=== PATIENT | male | born 1950 | race Caucasian/White ===

== ENCOUNTER 2017-08-18 06:12 | Day surgery (SDC) | payer MEDICARE, OTHER ==
--- NOTE | 2017-08-17 10:28 | SS ---
HISTORY OF PRESENT ILLNESS: This is a 66-year-old male who comes for colonoscopy for colon cancer sc ana rosa. The patient has no GI symptoms. He has a family history of colon cancer. ALLERGIES: SULFA. SOCIAL HISTORY: The patient does not smoke, but drinks alcohol socially. MEDICAL ILLNESSES: 1. Hypertension. 2. Diabetes mellitus. 3. Hyperlipidemia. 4. Obesity. PHYSICAL EXAMINATION: VITAL SIGNS: Pulse is 70, blood pressure 130/80. HEENT: Conjunctivae clear. CARDIOVASCULAR: First and second heart sounds normal. LUNGS: Clear to auscultation. ABDOMEN: Soft to palpate. No organomegaly. No tenderness. No masses. EXTREMITIES: Reveal no edema. ADMITTING DIAGNOSIS: A 66-year-old male who comes for colonoscopy for colon cancer hyacinth hernandez.
[2017-08-17 13:35] VITALS: BMI 36.8
--- NOTE | 2017-08-18 10:52 | OP ---
DATE OF SURGERY: 08/18/2017 OPERATIVE PROCEDURE: Colonoscopy with polypectomy and biopsy forceps. PREOPERATIVE DIAGNOSIS: A 66-year-old male undergoing colonoscopy for colon cancer screeni ng. POSTOPERATIVE DIAGNOSES: 1. Sessile ascending colon polyp. 2. Hemorrhoids. PROCEDURE IN DETAIL: The patient was placed on his left lateral position and was given sedation by A nesthesia Department. A rectal exam was done before the scope was advanced into the rectum. No lesi on felt on rectal exam. A Pentax video colonoscope was introduced into the rectum and advanced all t he way into the cecum. The prep was excellent. The mucosa appeared normal throughout the colon with normal vascular pattern. The appendiceal orifice, ileocecal valve and cecum, no pathology seen. A small ascending colon polyp removed with biopsy forceps. The hepatic flexure, transverse colon, sple romario flexure, descending colon, and sigmoid colon, no pathology. Rectum showed hemorrhoids. DISCHARGE PLANNING: This is a 66-year-old male who came for a colonoscopy for colon cancer screening. The colonoscopy showed sessile ascending colon polyp, hemorrhoids. DISCHARGE RECOMMENDATIONS: 1. The patient was advised to call me if he develops abdominal pain, hematochezia or fever. 2. In the absence of any of symptoms, come back to me in 2 weeks. 3. Repeat colonoscopy in 5 years.
[2017-08-18] MEDS ORDERED: PROPOFOL 200 MG/20 ML VIAL ONE (15:33)
== END 2017-08-18 08:54 | disposition home or self-care (01) ==
LOC: SDC 06:12
PROVIDERS: ATTEND Internal Medicine Gastroenterology
PROC: 0DBK8ZX Excision of Ascending Colon, Via Natural or Artificial Opening Endoscopic, Diagnostic (ICD-10-PCS; principal; 2017-08-18)
DX: Z12.11 Encounter for screening for malignant neoplasm of colon (principal); D12.2 Benign neoplasm of ascending colon; K64.9 Unspecified hemorrhoids; I10 Essential (primary) hypertension; E11.9 Type 2 diabetes mellitus without complications; E78.5 Hyperlipidemia, unspecified; E66.9 Obesity, unspecified; Z68.36 Body mass index [BMI] 36.0-36.9, adult; Z79.4 Long term (current) use of insulin; Z79.82 Long term (current) use of aspirin; Z79.899 Other long term (current) drug therapy; Z88.2 Allergy status to sulfonamides; Z98.890 Other specified postprocedural states
CPT/HCPCS: 88305; J2704

== ENCOUNTER → 2018-05-25 | Day surgery (SDC) | payer MEDICARE, OTHER ==
[2018-05-24 12:51] VITALS: BMI 33.7
[~2018-05-25] MED LIST: Fentanyl 100 MCG/2 ML VIAL ONE; Midazolam HCl 2 mg/2 ml Vial ONE; Sodium Bicarbonate 2.5 MEQ/5 ML VIAL ONE
[2018-05-25 08:59] LABS: INR-International Normal Ratio 1.1; PTT 29.5 SEC (22.9-36.1); Prothrombin Time 13.9 SEC (12.0-14.7)
--- NOTE | 2018-05-25 12:27 | CT ---
CT GUIDED LIVER MASS BIOPSY: HISTORY: Abdominal masses. Liver mass. CONSCIOUS SEDATION: At least 30 minutes were spent with the patient for conscious sedation. TECHNIQUE: After explaining the procedure and answering all questions, limited CT imaging of the upper abdomen w as performed. A lateral approach was planned. Sterile technique, buffered local anesthesia, conscio us sedation, CT guidance, and right upper quadrant lateral approach were used to carefully advance a 17 gauge trocar needle into a hypodense mass in the anterior segment, right liver lobe. Position was confirmed with CT imaging. A total of three 18 gauge core biopsy specimens were obtained and [facility]. Specimen adequacy was confirmed. The needle was removed. Post procedure imagi ng showed no evidence of complication. The patient tolerated the procedure well and was returned to the holding area in good condition for further monitoring. IMPRESSION: Technically successful CT guided liver mass biopsy. Pathology is pending. POS: JORGE
== END ==
LOC: CT 08:34
PROVIDERS: ATTEND Internal Medicine
PROC: 0FB13ZX Excision of Right Lobe Liver, Percutaneous Approach, Diagnostic (ICD-10-PCS; principal; 2018-05-25)
DX: C78.7 Secondary malignant neoplasm of liver and intrahepatic bile duct (principal); K86.89 Other specified diseases of pancreas; C80.1 Malignant (primary) neoplasm, unspecified; E11.9 Type 2 diabetes mellitus without complications; I10 Essential (primary) hypertension; M10.00 Idiopathic gout, unspecified site; E78.5 Hyperlipidemia, unspecified; Z79.4 Long term (current) use of insulin; Z79.82 Long term (current) use of aspirin; Z79.899 Other long term (current) drug therapy; Z88.2 Allergy status to sulfonamides
CPT/HCPCS: 36415; 47000; 77012; 85610; 85730; 88305; 88313; 88333; 88334; 88341; 88342; J2250; J3010

== ENCOUNTER 2018-06-07 14:05 | Outpatient (CLI) | payer MEDICARE, OTHER ==
--- NOTE | 2018-06-07 14:52 | RAD ---
CHEST 2 VIEWS: HISTORY: Malignant neoplasm overlying sits of pancreas. COMPARISON: Chest radiograph from 2012. FINDINGS: Heart size is mildly enlarged. Mild dilatation of the pulmonary arteries. No pneumothorax or effusi on. No suspicious mild pulmonary nodule is appreciated. IMPRESSION: Mild cardiomegaly. POS: TPC
== END 2018-06-07 14:06 | disposition home or self-care (01) ==
LOC: BICRAD 14:05
PROVIDERS: ATTEND Internal Medicine Medical Oncology
DX: C25.8 Malignant neoplasm of overlapping sites of pancreas (principal); I51.7 Cardiomegaly
CPT/HCPCS: 71046

== ENCOUNTER 2018-06-09 07:43 | Outpatient (CLI) | payer MEDICARE, OTHER ==
--- NOTE | 2018-06-09 14:51 | PET ---
PET WITH CT SKULL TO MID THIGH: CLINICAL HISTORY: Pancreatic cancer. RADIOPHARMACEUTICAL: 12 mCi F18-FDG IV interspersed with 10 mL 0.9% sodium chloride. There is appropriate biodistribution of radiotracer activity. No prior PET CT imaging available. FINDINGS: There is a focus of increased radiotracer activity localizing the left aspect of the lower cervical s pine with a maximum SUV of 2.7. There are hypermetabolic osseous lesions at each shoulder, with SUV m aximum up to 5.5 SUV localizing within the left humeral head. Within the left hilum, there is hyperme tabolic activity likely within a lymph node, with maximum SUV of approximately 4.7. There is a hyperm etabolic lesion involving left aspect of the upper thoracic spine, T3 level, with maximum SUV of 3.8. Numerous hypermetabolic lesions are seen throughout the liver, with involvement of both hepatic lobe s, with maximum SUV approximating 8, at the anterior segment right hepatic lobe. There is hypermetabo lic activity within the tail of the pancreas, with maximum SUV of 10. The adjacent hypertrophied left adrenal gland demonstrates increased metabolic activity as well, some of which is difficult to defin itively separate from the marked hypermetabolism of the adjacent pancreatic tail. At the lateral limb of the enlarged left adrenal gland, maximum SUV is approximately 4.6, There are numerous foci of inc reased metabolic activity of the kidneys bilaterally, some of which project at the parenchyma, althou gh could relate to misregistration. There is a focal mass-like prominence at the medial aspect of the right kidney with mild hypermetabolic activity, approximately 2.7. There are scattered foci of abnor mal increased metabolic activity throughout the thoracolumbar spine, and within the sacrum, with maxi mum SUV of approximately 6.3 at the L2 level. There are numerous hypermetabolic foci involving the bi lateral pelvic osseous structures, as well. There is mild nodularity at the pulmonary parenchyma bilaterally, too small for threshold of PET reso lution. There is linear, wedge-shaped density at the anterior left lung. IMPRESSION: Widespread metastatic disease involving the neck, chest, abdomen, and pelvis, as discussed above. POS: ZOE
== END 2018-06-09 07:44 | disposition home or self-care (01) ==
LOC: PET 07:43
PROVIDERS: ATTEND Internal Medicine Medical Oncology
DX: C25.9 Malignant neoplasm of pancreas, unspecified (principal); C78.7 Secondary malignant neoplasm of liver and intrahepatic bile duct; C79.00 Secondary malignant neoplasm of unspecified kidney and renal pelvis; C77.0 Secondary and unspecified malignant neoplasm of lymph nodes of head, face and neck
CPT/HCPCS: 78815; A9552

== ENCOUNTER 2018-06-15 11:07 | Day surgery (SDC) | payer MEDICARE, OTHER ==
[2018-06-14 13:23] VITALS: BMI 32.8
[2018-06-15 13:02] LABS: #Eosinphils 0.3 thou/uL (0.0-0.7); #Lymphocytes 1.1 thou/uL (1.20-3.40); #Monocytes 0.7 thou/uL (0.11-0.59); #Neutrophils 4.4 thou/uL (1.40-6.50); %Basophils 0.5 % (0.0-1.0); %Eosinophils 5.1 % (0.0-10.0); %Lymphocytes 16.8 % (21.0-51.0); %Monocytes 11.1 % (0.0-10.0); %Neutrophils 66.5 % (42.0-75.0); Mean Corpuscular HGB CONC 30.9 g/dL (32.0-36.0); Mean Corpuscular Hemoglobin 27.8 pg (27.0-31.0); Mean Corpuscular Volume 89.9 fL (78.0-98.0); Mean Platelet Volume 6.9 fL (7.4-10.4); Platelet Count 262 thou/uL (130-400); RBC Distribution Width 13.2 % (11.5-14.5); Red Blood Cell (RBC) Count 3.95 mill/uL (4.70-6.10); White Blood Cell (WBC) Count 6.6 thou/uL (4.8-10.8)
[2018-06-15] MEDS ORDERED: Bupivacaine/Epinephrine 0.25% 30 ML VIAL ONE (13:13)
[2018-06-15] MEDS ORDERED: Lidocaine 2% PF 5 ML VIAL ONE (13:13)
[2018-06-15] MEDS ORDERED: Midazolam HCl 2 mg/2 ml Vial ONE (13:21)
[2018-06-15] MEDS ORDERED: Propofol 500 MG/50 ML VIAL ONE (13:21)
[2018-06-15] MEDS ORDERED: Fentanyl 100 MCG/2 ML VIAL ONE (13:21)
[2018-06-15] MEDS ORDERED: Ketamine 50 MG/ML (10ML VIAL) ONE (13:23)
[2018-06-15] MEDS ORDERED: PROPOFOL 200 MG/20 ML VIAL ONE (13:38)
[2018-06-15] MEDS ORDERED: HYDROcodone/Acetaminophen 5/325 mg Tablet ONE (15:39)
--- NOTE | 2018-06-15 16:09 | RAD ---
CHEST ONE VIEW: 06/15/18 HISTORY: Postop Mediport placement. COMPARISON: Radiograph 03/03/08. FINDINGS: Placement of Mediport without pneumothorax. Heart size is enlarged. IMPRESSION: Uncomplicated placement of Mediport. POS: TPC
--- NOTE | 2018-06-15 21:33 | OP ---
DATE OF PROCEDURE: 06/15/2018 PREOPERATIVE DIAGNOSIS: Pancreatic cancer. POSTOPERATIVE DIAGNOSIS: Pancreatic cancer. PROCEDURE PERFORMED: Tunneled syndrome subcutaneous port (MediPort, right internal jugular vein, CT injectable low-profile). ANESTHESIA: General. ESTIMATED BLOOD LOSS: Minimal. COMPLICATIONS: None. SPECIMEN: None. FINDINGS: Tip of the catheter was at the atriocaval junction. TECHNIQUE: Th patient was taken to the operating room and laid supine on the operating room table. After sedation was obtained, bilateral neck and chest were shaved, prepped, and draped in a sterile fashion. Local anesthetic was infiltrated over the right internal jugular vein. Internal jugular vein cannulated using a 22-gauge finder needle, followed by a Seldinger. Wire was passed into the superior vena cava under fluoro guidance. Small madonna was made at the wire entrance site. A separate 3 cm incision was made in the right upper chest. Subcutaneous pocket was made below the lower incision. Tubing for MediPort tunneled from the inferior and superior incisions, and suture sheath was placed over the wire into superior vena cava under fluoro guidance. The dilator and wire were removed and end of the catheter was sewed into the sheath. The sheath was peeled away. The tip of the catheter was at the atriocaval junction. MediPort tubing cut to fit the MediPort with lower incision, connected to the MediPort, sewn to the chest wall in the subcutaneous pocket using Prolene. The MediPort flushes and draws blood without difficulty. It was flushed with heparin flush. The wound was irrigated and closed using 3-0 Vicryl, 4-0 Monocryl, and Dermabond. The patient was sent to Recovery in stable condition. All instrument counts, needle counts, and lap counts are correct. Job ID: [id number]
== END 2018-06-15 16:15 | disposition home or self-care (01) ==
LOC: SDC 11:07
PROVIDERS: ATTEND Surgery
PROC: 05HM33Z Insertion of Infusion Device into Right Internal Jugular Vein, Percutaneous Approach (ICD-10-PCS; principal; 2018-06-15)
DX: C25.9 Malignant neoplasm of pancreas, unspecified (principal); C78.7 Secondary malignant neoplasm of liver and intrahepatic bile duct; I10 Essential (primary) hypertension; E11.9 Type 2 diabetes mellitus without complications; E78.5 Hyperlipidemia, unspecified; Z88.2 Allergy status to sulfonamides
CPT/HCPCS: 36416; 71045; 85025; 93005; 93010; C1788; J1642; J2001; J2250; J2704; J3010

== ENCOUNTER → 2018-08-19 | Day surgery (SDC) | payer MEDICARE, OTHER ==
[~2018-08-19] MED LIST changes: +Acetaminophen 500 MG TAB PO SCH; -Fentanyl 100 MCG/2 ML VIAL ONE; -Midazolam HCl 2 mg/2 ml Vial ONE; -Sodium Bicarbonate 2.5 MEQ/5 ML VIAL ONE; +Sodium Chloride 0.9% 20 ML ONE; +diphenhydrAMINE 25 MG CAP PO SCH
[2018-08-19 19:20] VITALS: BP 180/84; TEMP 97.7
== END ==
LOC: ONC/OP 12:15
PROVIDERS: ATTEND Nurse Practitioner Acute Care
PROC: 30233N1 Transfusion of Nonautologous Red Blood Cells into Peripheral Vein, Percutaneous Approach (ICD-10-PCS; principal; 2018-08-19)
DX: D64.9 Anemia, unspecified (principal); D69.6 Thrombocytopenia, unspecified; Z88.2 Allergy status to sulfonamides
CPT/HCPCS: 36430; 86850; 86900; 86901; J1642; P9016; Q0163

== ENCOUNTER 2018-09-13 08:49 | Outpatient (CLI) | payer MEDICARE, OTHER ==
--- NOTE | 2018-09-13 12:46 | PET ---
PET CT: 09/13/18 HISTORY: 67-year-old male with pancreatic cancer. Exam requested for response evaluation. TECHNIQUE: PET scan with CT attenuation correction is performed from the base of the brain to the proximal thigh s following intravenous administration of 12.5 millicuries of 15-fluorodeoxyglucose in the right ante cubital fossa. COMPARISON: PET CT of 06/09/18. CORRELATION: CT abdomen and pelvis of 05/17/18. FINDINGS: There is continued hypermetabolic activity in the left hilum with an SUV Of 3 (previously 5). No jere l hypermetabolism is seen in the neck, mediastinum, right hilum, either axillae, abdomen or pelvis. The hypermetabolic pancreatic tail mass demonstrates a current SUV of 10 (previously 13). Multiple hypermetabolic liver lesions are again seen with a maximum SUV of 4.6 in the left lobe (prev iously 6.4), 6.8 in the medial aspect of the right lobe (previously 9.2) and 6 in the lateral aspect of the right lobe (previously 7.5). Numerous hypermetabolic osseous lesions are again noted. There are new osseous lesions in the L5 (SUV 5.6), T12 (SUV 3.7) and T9 (SUV 3.5) vertebrae. The previously noted territory service representative lesions of the m ain osseous metastatic foci demonstrate SUVs of 3 at L2 (previously 6.4), 3.9 at S1 (previously 4.7), 5.2 at S2 (previously 4), 3 at C4 (previously 4), 6.4 at right posterior acetabulum (previously 6.6) , right scapula 3.6 (previously 6.5), left humeral head 4.7 (previously 5.5) and right humeral head 7 (previously 5.6). No hypermetabolic pulmonary nodules or adrenal lesions are seen. There is physiologic activity in the and GI tracts. The CT scan used for attenuation correction demonstrates no evidence of pleural effusion or ascites. IMPRESSION: Mixed response to therapy since 06/09/18. POS: ZOE
== END 2018-09-13 08:50 | disposition home or self-care (01) ==
LOC: PET 08:49
PROVIDERS: ATTEND Internal Medicine Medical Oncology
DX: C25.9 Malignant neoplasm of pancreas, unspecified (principal)
CPT/HCPCS: 78815; A9552

== ENCOUNTER 2018-12-27 16:31 | Observation (INO) | payer MEDICARE, OTHER ==
[2018-12-27] MEDS ORDERED: Ondansetron PF 4 MG/2 ML Vial ONE (18:49)
[2018-12-27] MEDS ORDERED: Morphine 4 MG/ML VIAL ONE (18:49)
[2018-12-27 18:51] LABS: #Lymphocytes 0.5 thou/uL (1.20-3.40); #Monocytes 0.2 thou/uL (0.11-0.59); #Neutrophils 12.7 thou/uL (1.40-6.50); %Basophils 0.1 % (0.0-1.0); %Eosinophils 0.3 % (0.0-10.0); %Lymphocytes 3.6 % (21.0-51.0); %Monocytes 1.3 % (0.0-10.0); %Neutrophils 94.8 % (42.0-75.0); Hemoglobin 9.8 g/dL (14.0-18.0); Mean Corpuscular HGB CONC 31.9 g/dL (32.0-36.0); Mean Platelet Volume 6.8 fL (7.4-10.4); Platelet Count 256 thou/uL (130-400); RBC Distribution Width 17.3 % (11.5-14.5); Red Blood Cell (RBC) Count 3.07 mill/uL (4.70-6.10); White Blood Cell (WBC) Count 13.4 thou/uL (4.8-10.8)
[2018-12-27 19:01] LABS: INR-International Normal Ratio 1.1; PTT 34.9 SEC (22.9-36.1); Prothrombin Time 14.6 SEC (12.0-14.7)
[2018-12-27 19:16] LABS: ALT (SGPT) 10 U/L (8-55); AST (SGOT) 47 U/L (5-34); Albumin 2.8 g/dL (3.4-4.8); Alkaline Phosphatase 349 U/L (40-150); Anion Gap 17 mmol/L (10-20); BUN (Urea Nitrogen) 24 mg/dL (8.4-25.7); Bilirubin, Total 0.4 mg/dL (0.2-1.2); Calc. Creatinine Clearance 0 mL/min (70-130); Calcium 8.2 mg/dL (7.8-10.44); Carbon Dioxide 21 mmol/L (23-31); Chloride 102 mmol/L (98-107); Estimated GFR-MDRD Greater than 90; Globulin 3.2 g/dL (2.4-3.5); Glucose 199 mg/dL (80-115); Potassium 3.6 mmol/L (3.5-5.1); Sodium 136 mmol/L (136-145)
--- NOTE | 2018-12-27 23:08 | PDOC.FPRHP ---
- History of Present Illness Chief Complaint: pain History of Present Illness: 68 yo male with hx of metastatic pancreatic cancer presents for evaluation of abdominal pain and bloating. Patient reports increased and progressive bloating and pain over the past week along with increased bilateral LE edema. Received chemo earlier today. Sent over for CT scan to evaluate. Noted to have "a bunch of fluid." Patient reports since dx he has lost 70 lbs. Patient does endorse nausea but no vomiting. But has episodes of dry heaving. Has noticed increased mucus and postnasal drip. Recently evaluated by GI due to dysphasia to solids. No significant finding. Mild gastritis to be treated by H2 josh. Having intermittent diarrhea. Patient currently on Eitzen 10/325 mg with 2 tabs at a time BID that has been controlling pain but with recent changes over the past 2 days has not been controlling. Patient unsure of chemo regiment or cycle number (possibly #14). Recently received steroid dose. Patient was dx in April and started chemo in May. Fell last week but did not injury himself after tripping on rug at home. Last week noticed "fluid blisters" to toes. Patient describes belly bloating as an "intertube on my belly." Abdominal pain graded 5/10. ED Course: Patient was given morphine and zofran in the ED. - Allergies/Adverse Reactions Allergies Allergy/AdvReac Type Severity Reaction Status Date / Time Sulfa (Sulfonamide Allergy Unknown Verified 12/28/18 01:44 Antibiotics) - Home Medications Medication Instructions Recorded Confirmed Type Allopurinol [Zyloprim] 300 mg PO DAILY tablet 12/28/18 Rx Diphenoxylate HCl/Atropine 2 tab PO QID PRN 12/28/18 12/28/18 History [Lomotil] Dronabinol [Marinol] 5 mg PO BID-AC cap 12/28/18 Rx Insulin Detemir [Levemir Flextouch] 25 unit SQ DAILY 12/28/18 12/28/18 History Insulin Glargine [Lantus Vial] 25 units SC DAILY vial 12/28/18 Rx Lisinopril [Zestril] 10 mg PO DAILY tab 12/28/18 Rx Loperamide HCl/Simethicone 1 tablet PO ASDIR PRN 12/28/18 12/28/18 History [Imodium Multi-Symptom Relief Caplet] Potassium Chloride [K-Dur] 20 meq PO BID-WM tab 12/28/18 Rx - History PMHx: HTN, DM, HLD PSHx: Mediport placement 05/2018, liver bx 04/2018, back lesion removal under anesthesia FHx: Family history of heart disease. No cancer. Social: in June 2018. passed of breast cancer. 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 No alcohol, tobacco, drug use. - Review of Systems General: reports: weight/appetite/sleep changes (weight loss since CAncer dx). denies: fever/chills Eyes: denies: eye pain, vision changes ENT: denies: nasal congestion, rhinorrhea Respiratory: reports: cough. denies: shortness of breath Cardiovascular: reports: edema. denies: chest pain, palpitation, orthopnea Gastrointestinal: reports: nausea, abdominal pain. denies: diarrhea, constipation Genitourinary: denies: dysuria (difficulty urinating) Skin: denies: rashes, lesions, jaundice Neurological: denies: numbness, weakness Psychological: denies: anxiety, depression - Vital signs BP: 161/86 HR: 86 RR: 18 Pox: 98% on RA Wt: 81kg - Physical Exam Constitutional: NAD, awake, alert and oriented HEENT: normocephalic and atraumatic, EOMI, conjunctiva clear, no scleral icterus , MMM, oropharynx clear, other (somewhat hard of hearing) Neck: supple, trachea midline, no LAD, no thyromegaly Chest: no-tender to palpation (mediport in place over R chest) Heart: RRR, normal S1/S2, no murmurs/rubs/gallops -Heart: 3+ pitting edema in both lower extremities and over sacrum up to mid-back Lungs: CTAB, no respiratory distress -Lungs: mildly diminished over lower lung nunez but no rhonchi, crackles or rales. Abdomen: non-tender, bowel sounds present -Abdomen: markedly distended, tight abdomen, no fluid wave, no rigidity or guarding Musculoskeletal: normal structure, normal tone Neurological: no focal deficit Skin: no rash/lesions -Skin: multiple fluid-filled blisters over toes bilaterally Heme/Lymphatic: no petechia, no LAD Psychiatric: normal mood and affect, intact recent and remote memory FMR H&P: Results - Labs Result Diagrams: 12/28/18 04:16 12/28/18 04:16 Lab results: WBC 13.4 thou/uL (4.8-10.8) H 12/27/18 18:44 Hgb 9.8 g/dL (14.0-18.0) L 12/27/18 18:44 Hct 30.7 % (42.0-52.0) L 12/27/18 18:44 MCV 100.0 fL (78.0-98.0) H 12/27/18 18:44 Plt Count 256 thou/uL (130-400) 12/27/18 18:44 Neutrophils % 94.8 % (42.0-75.0) H 12/27/18 18:44 Sodium 136 mmol/L (136-145) 12/27/18 18:44 Potassium 3.6 mmol/L (3.5-5.1) 12/27/18 18:44 Chloride 102 mmol/L (98-107) 12/27/18 18:44 Carbon Dioxide 21 mmol/L (23-31) L 12/27/18 18:44 BUN 24 mg/dL (8.4-25.7) 12/27/18 18:44 Creatinine 0.79 mg/dL (0.7-1.3) 12/27/18 18:44 Glucose 199 mg/dL (80-115) H 12/27/18 18:44 Calcium 8.2 mg/dL (7.8-10.44) 12/27/18 18:44 Total Bilirubin 0.4 mg/dL (0.2-1.2) 12/27/18 18:44 AST 47 U/L (5-34) H 12/27/18 18:44 ALT 10 U/L (8-55) 12/27/18 18:44 Alkaline Phosphatase 349 U/L (40-150) H 12/27/18 18:44 Serum Total Protein 6.0 g/dL (5.8-8.1) 12/27/18 18:44 Albumin 2.8 g/dL (3.4-4.8) L 12/27/18 18:44 FMR H&P: A/P - Plan 68 male w/ metastatic pancreatic cancer: Ascites: - likely 2/2 to metastatic cancer - Therapeutic and/or diagnostic paracentesis in AM - Patient may have regular diet. - Procalcitonin pending Pain 2/2 metastatic pancreatic cancer and new-onset ascites: - Continue current home pain regimen of Eitzen - Fentanyl prn Dysphagia 2/2 to acid reflux: - May start PPI - PRN GI cocktail - Consult dietary for malnutrition and add Ensure Enlive for supplementation Metastatic Pancreatic Cancer: - Patient has chemo pump he will continue to use while here HTN HLD DM - Stable, chronic conditions - Continue home regimen of levemir, home BP meds - Insulin sliding scales, glucose checks ACHS Code status: FULL VTE PPx: therapeutic LVX Terrie Menendez MD PGY1 Disposition/LOS: Observation status on Oncology floor. FMR H&P: Upper Level - Pertinent history 68 yo gentleman with pancreatic metastatic disease on chemo presents with new onset ascites and abdominal pain. - Pertinent findings Vitals: BP:185/91 HR: 102 RR: 30 O2sat: 95%RA PE: NAD dry MM CTAB, decreased at the bases mild tachycardia, no m/r/g abdomen distended nontender to palpation, hypoactive bowel sounds 3+ pitting edema up to knees, 2+ pulses b/l lower extremities anasarca Labs: alk phosph 349 AST 49 Glucose 199 albumin 2.8 wbc 13.4 H/H: 9.8/30.7 [address]cv [address]% CT: metastatic dz to bone and liver pancreatic mass mass on right kidney ascites - Plan Date/Time: 12/27/18 3899 68 yo male with metastatic pancreatic cancer on chemo presents with new abdominal distention and pain, admitted for ascited and uncontrolled cancer related pain. #Ascites -2/2 malignancy -will admit to oncology and recommend theraputic paracentesis in the am #Uncontrolled pain -2/2 metastatic disease -restarted home regimen of 2 tabs 10/325mg norco q4-6 hrs prn pain, but addded fentanyl 50mcg IV q6h prn severe pain as the morphine per the pt didn't seem to help #Acid reflux with dysphagia for solids -seen by Antonio, s/p EGD -will start PPI -gi cocktail prn #Chemo related n/v -zofran, reglan, phenergan prn nausea -gi cocktail prn #pancreatic cancer with adia to liver and bone -chemo pump -control pain, see above -control nausea/vomiting, see above -Dr. Simmons consulted #leukocytosis -afebrile, no fever or source of infection -procal pending -will trend #macrocytic anemia -not in tranfusion range -will trend -restart home medications #Type 2 DM -sliding scale -home meds #HTN -prn hydralazine, labetalol -not currently on home meds #malnutrition -70 pound weight loss -ensure enlive bid - Code: Full DVT: lovenox Dispo: < 2 midnights Ramila Castañeda MD, PGY-3 Addendum - Attending - Attending Attestation Date/Time: 12/27/18 4980 I personally evaluated the patient and discussed the management with Dr. Menendez and Dr. Renteria I agree with the History, Examination, Assessment and Plan documented above with any addition or exceptions noted below. 68 yo male with metastatic pancreatic cancer sent over by oncologist for therapeutic tap Patient with progressive pain, nausea, dry heavying, severe bloating, and SOB due to progressive worsening of abdominal ascites. VS, labs, and imaging reviewed. Agree with PE as documented. Admit for obs. Adjust meds for pain control. GI in AM. Onc in AM. Monitor. Chet
[2018-12-27] MEDS ORDERED: Dextrose 5% in Water 1,000 ML IV PRN (23:55)
[2018-12-27] MEDS ORDERED: Metoclopramide HCl 10 MG TAB PO PRN (23:55)
[2018-12-27] MEDS ORDERED: Bisacodyl 10 MG SUPP PR PRN (23:55)
[2018-12-27] MEDS ORDERED: Guaifenesin DM 100-10/5 ML UDCUP PO PRN (23:55)
[2018-12-27] MEDS ORDERED: Ibuprofen 200 MG TAB PO PRN (23:55)
[2018-12-27] MEDS ORDERED: Bisacodyl 5 MG TAB PO PRN (23:55)
[2018-12-27] MEDS ORDERED: Fentanyl 100 MCG/2 ML VIAL SLOW IVP PRN (23:55)
[2018-12-27] MEDS ORDERED: Phenergan/Codeine 10-6.25mg/5ml UDCUP PO PRN (23:55)
[2018-12-27] MEDS ORDERED: Ondansetron ODT 4 MG TAB PO PRN (23:55)
[2018-12-27] MEDS ORDERED: HumaLOG 300 UNITS/3 ML VIAL SC PRN ×2 (23:55)
[2018-12-27] MEDS ORDERED: Cepastat Lozenges 1 LOZ PO PRN (23:55)
[2018-12-27] MEDS ORDERED: Ondansetron PF 4 MG/2 ML Vial IVP PRN (23:55)
[2018-12-27] MEDS ORDERED: Benzonatate 100 MG CAP PO PRN (23:55)
[2018-12-27] MEDS ORDERED: HYDROcodone/Acetaminophen 10/325 mg Tablet PO PRN ×2 (23:55)
[2018-12-27] MEDS ORDERED: Dextrose 50% Abboject 50 ML SYRINGE SLOW IVP PRN (23:55)
[2018-12-27] MEDS ORDERED: Loperamide HCl 2 MG CAP PO PRN ×2 (23:55)
[2018-12-27] MEDS ORDERED: Metoclopramide HCl 10 MG/2 ML VIAL IVP PRN (23:55)
[2018-12-27] MEDS ORDERED: Promethazine 25 MG TAB PO PRN (23:55)
[2018-12-27] MEDS ORDERED: Promethazine HCl 25 MG SUPP PR PRN (23:55)
[2018-12-27] MEDS ORDERED: Calcium Carbonate 500 MG ChewTAB PO PRN (23:55)
[2018-12-27] MEDS ORDERED: Senokot S 8.6-50 MG TAB PO PRN (23:55)
[2018-12-27] MEDS ORDERED: diphenhydrAMINE 25 MG CAP PO PRN (23:55)
[2018-12-28 00:25] VITALS: BMI 28.0
[2018-12-28] MEDS ORDERED: Lidocaine 2% Viscous Solution 20 ML, Aluminum & Magnesium Hydroxide 30 ML, Donnatal Eli... SSW PRN (03:45)
[2018-12-28 04:24] LABS: #Lymphocytes 0.3 thou/uL (1.20-3.40); #Monocytes 0.3 thou/uL (0.11-0.59); #Neutrophils 11.1 thou/uL (1.40-6.50); %Basophils 0.1 % (0.0-1.0); %Eosinophils 0.2 % (0.0-10.0); %Lymphocytes 2.9 % (21.0-51.0); %Monocytes 2.8 % (0.0-10.0); Hemoglobin 9.3 g/dL (14.0-18.0); Mean Corpuscular HGB CONC 32.2 g/dL (32.0-36.0); Mean Corpuscular Hemoglobin 32.3 pg (27.0-31.0); Mean Platelet Volume 6.8 fL (7.4-10.4); Platelet Count 223 thou/uL (130-400); RBC Distribution Width 17.1 % (11.5-14.5); Red Blood Cell (RBC) Count 2.87 mill/uL (4.70-6.10); White Blood Cell (WBC) Count 11.8 thou/uL (4.8-10.8)
[2018-12-28 04:48] LABS: Anion Gap 19 mmol/L (10-20); BUN (Urea Nitrogen) 28 mg/dL (8.4-25.7); Calc. Creatinine Clearance 95 mL/min (70-130); Calcium 7.9 mg/dL (7.8-10.44); Carbon Dioxide 16 mmol/L (23-31); Chloride 103 mmol/L (98-107); Estimated GFR-MDRD Greater than 90; Glucose 245 mg/dL (80-115); Potassium 4.2 mmol/L (3.5-5.1); Sodium 134 mmol/L (136-145)
--- NOTE | 2018-12-28 07:52 | PDOC.FM ---
- Subjective Subjective: Mr. Samaniego was sleeping during the time of the evaluation but was easily arousable and pleasant. His daughter was also present in the room and assisted with the HPI. The patient stated that he was feeling well despite not sleeping well throughout the night. He stated that his pain was adequately controlled, ranking it at approximately 5/10. He also stated that although he was nauseous, this was near to his baseline following his extensive chemotherapy regimen. He denied any fevers, chills, night sweats, headaches, chest pain, shortness of breath or difficulty with voiding. - Objective MAR Reviewed: Yes Vital Signs & Weight: Vital Signs (12 hours) Temp Pulse Resp BP Pulse Ox 12/28/18 03:55 97.8 F 87 16 160/82 H 95 Weight Weight 81.221 kg I&O: 12/27/18 12/28/18 12/29/18 06:59 06:59 06:59 Intake Total 100 Balance 100 Result Diagrams: 12/28/18 04:16 12/28/18 04:16 Radiology Reviewed by me: Yes (ABD CT: Ascites w/ diffuse metastases) Phys Exam - Physical Examination Constitutional: NAD HEENT: PERRLA, moist MMs, sclera anicteric, oral pharynx no lesions Neck: no nodes, supple, full ROM Respiratory: no wheezing, no rales, no rhonchi, clear to auscultation bilateral Cardiovascular: RRR, no significant murmur, no rub Gastrointestinal: positive bowel sounds Protuberant abdomen w/o TTP, guarding or rigidity Musculoskeletal: edema present Neurological: non-focal, moves all 4 limbs Lymphatic: no nodes Psychiatric: normal affect Deviation from normal: Chronic venous stasis changes in LEs Dx/Plan (1) Abdominal pain Code(s): R10.9 - UNSPECIFIED ABDOMINAL PAIN Status: Acute (2) Ascites Code(s): R18.8 - OTHER ASCITES Status: Acute (3) Metastasis from pancreatic cancer Code(s): C79.9 - SECONDARY MALIGNANT NEOPLASM OF UNSPECIFIED SITE; C25.9 - MALIGNANT NEOPLASM OF PANCREAS, UNSPECIFIED Status: Acute - Plan Plan: 1. ABD Pain, 2/2 to Ascites -Likely 2/2 to diffusely metastatic Pancreatic Cancer -CT ABD: Extensive ascites and metastases w/o additional pathologies identifies -WBC: 11.8 -ProCal: 0.2 -Infectious etiologies for pain unlikely -Patient states that he is able to void and pass stool without difficulty -Will likely require therapeutic/diagnostic paracentesis 2. Pain 2/2 Metastatic Pancreatic Cancer/New-Onset Ascites -Continue home pain regimen of 2 [place] 10/325 Q4H -Fentanyl 50 mcg Q6H PRN 3. Metastatic Pancreatic Cancer -Patient has chemo pump - will continue current medication regimen established with Oncology 4. HTN -BP was 160/82 on 12/28/18 -Restart home medication regimen -BP will likely autoregulate following therapeutic/diagnostic paracentesis 5. HLD -Restart home medication regimen 6. DM -Continue home medication regimen -Moderate Insulin Sliding Scales -Glucose checks ACHS Code Status: FULL VTE PPx: Therapeutic LVX Diet: CC Activity: Ad kendra Dispo: Patient appears to have pain and nausea adequately controlled. Will schedule theurapeutic/diagnostic paracentesis later this AM with possible DC later this PM.
[2018-12-28] MEDS: Potassium Chloride 20 MEQ TAB PO SCH ×3 (08:45→17:34)
[2018-12-28] MEDS: Dronabinol 2.5 MG CAP PO SCH ×2 (08:45→16:45)
[2018-12-28] MEDS ORDERED: Lisinopril 10 MG TAB PO SCH (09:00)
[2018-12-28] MEDS ORDERED: INSULIN DETEMIR 25 UNIT SQ SCH (09:00)
[2018-12-28] MEDS ORDERED: Enoxaparin Sodium 40 MG/0.4 ML SYRINGE SC SCH (09:00)
[2018-12-28] MEDS ORDERED: Famotidine 20 MG TAB PO SCH (09:00)
[2018-12-28] MEDS ORDERED: Allopurinol 300 MG TAB PO SCH (09:00)
[2018-12-28] MEDS ORDERED: Insulin Glargine 25 UNITS in Pre-Filled Syringe 1 EACH SC SCH (09:00)
--- NOTE | 2018-12-28 10:32 | PRG ---
DATE OF SERVICE: 12/28/2018 Mr. Samaniego is a very pleasant 68-year-old man, who unfortunately with metastatic pancreatic cancer. He presented to our ER with some abdominal pain and nausea and was noted to have rather massive ascites. He has been admitted for observation and paracentesis. This morning, he is awake and alert, in no acute distress. He does have abdominal distention secondary to massive ascites. We will proceed with a paracentesis later today to relieve his symptomatology. We have notified Oncology. Job ID: [id number]
[2018-12-28] MEDS ORDERED: Lidocaine 1% w/Epinephrine 1:100K 20 ML VIAL IJ SCH (11:30)
[2018-12-28 12:27] VITALS: TEMP 97.5
--- NOTE | 2018-12-28 14:07 | PDOC.OP ---
Operative Note - Operative Note Operative Note: ABDOMINAL PARACENTESIS INDICATION: Abdominal Pain / Distention PROCEDURE RAILROAD REPAIRER: Dr. Jose De Jesus Grier ATTENDING PHYSICIAN: Dr. Krishna Phan In Attendance: Y Ultrasound used to krishna location: Y CONSENT: Consent was obtained from the patient prior to the procedure. Indications, risks , and benefits were explained at length. PROCEDURE SUMMARY: A time-out was performed. My hands were sterilized prior to the procedure. I wore a mask with sterile gloves throughout the procedure. The RLQ of the abdomen was cleansed and draped in usual sterile fashion using chlorhexidine scrub. 1% lidocaine with epinephrine was used to numb the skin, soft tissue and peritoneum. The paracentesis catheter was inserted and advanced with negative pressure until straw colored fluid was aspirated. The catheter was then connected to the vaccutainer and 4.5 liters of additional ascitic fluid was drained. The catheter was removed and minimal leaking was noted. A bandaid was placed over the puncture wound. The patient tolerated the procedure well without any immediate complications. Estimated blood loss was 10 mL. The patient 's BP was monitored after each liter of ascitic fluid was drained and are listed in order below. 1L: 148/70 2L: 159/73 3L: 154/74 4L: 152/72 4.5L: 137/67 Addendum - Attending - Attending Attestation Date/Time: 12/28/18 1420 I personally evaluated the patient and discussed the management with Dr. Grier and was present for the entire procedure with the following changes noted below. Dr. Carl Barry was also present for the procedure. Patient admitted for symptomatic ascities due to metastatic pancreatic cancer. Paracentesis performed for symptomatic treatment. Procedure performed without complication with 4.5L of ascitic fluid removed. Minimal leakage noted from the incision. Further management per primary team.
[2018-12-28 17:07] VITALS: BP 161/70
--- NOTE | 2018-12-29 10:30 | DIS ---
DATE OF ADMISSION: 12/27/2018 DATE OF DISCHARGE: 12/28/2018 RESIDENT: Jose De Jesus Grier MD ADMITTING ATTENDING: Dr. Tanna Vann. DISCHARGE ATTENDING: Dr. Carlos Polo. CONSULTS: None. PROCEDURES: Paracentesis. PRIMARY DIAGNOSIS: Abdominal pain secondary to ascites secondary to metastatic pancreatic cancer. SECONDARY DIAGNOSES: Hypertension, diabetes, hyperlipidemia, gout, extreme weight loss. DISCHARGE MEDICATIONS: None. DISCONTINUED MEDICATIONS: 1. Rodney 10/325. 2. Allopurinol 300 mg. 3. Lovenox 40 mg. 4. Famotidine 20 mg. 5. Fentanyl 50 mcg. 6. Insulin glargine 25 units. 7. Lisinopril 10 mg. HISTORY OF PRESENT ILLNESS/HOSPITAL COURSE: Mr. Samaniego is an unfortunate gentleman who presents to the emergency department after consulting with his oncologist due to increasing abdominal pain. Mr. Samaniego has had a diagnosis of metastatic pancreatic cancer since May 2018 and has been receiving multiple rounds of chemotherapy treatment. Over the past several months, he has had increasing abdominal girth, thought to be secondary to ascites as well as increasing abdominal pain, nausea, and shortness of breath. On admission, the patient received a CT scan that demonstrated gross ascites within the abdominal cavity. No signs of additional pathology other than the metastatic pancreatic cancer previously noted. During his stay, a paracentesis was performed by Dr. Jose De Jesus Grier with [facility] and approximately 4.5 L of straw-colored ascitic fluid was removed. The patient admitted to have greatly increased sense of relief and a lessening of his abdominal pain, shortness of breath, and nausea. The patient was able to maintain p.o. intake and use the bathroom for stooling and voiding prior to discharge. LABORATORY DATA: Upon discharge, WBC count of 11.8, RBC 2.9, hemoglobin of 9.3, hematocrit 28.8, platelet count 223. Coagulation panel revealed a PT of 14.6, APTT of 34.9, and an INR of 1.1. Chem panel demonstrated sodium of 134, potassium 4.2, chloride 103, carbon dioxide 16, BUN 28, creatinine 0.83, glucose 245, but registered as 215 via POC glucose prior to discharge. AST 47, ALT 10, alk phos 349. Serum total protein 6, albumin 2.8, procalcitonin 0.22. The likelihood of an infectious cause to the patient's increasing abdominal girth and pain appeared unlike both on admission and at discharge. DISPOSITION: Stable, although prognosis is relatively poor given the patient's advanced metastatic pancreatic cancer. DISCHARGE INSTRUCTIONS: 1. Location: Home. 2. Diet: Renal diet. 3. Activity: No restrictions. 4. Followup: Dr. Jordan Falk (PCP) Job ID: [id number] MTDD
== END 2018-12-28 17:51 | disposition home or self-care (01) ==
LOC: ERS 16:31 → ONC 23:32
PROVIDERS: ADMIT Student in an Organized Health Care Education/Training Program; ATTEND Student in an Organized Health Care Education/Training Program
PROC: 0W9G3ZZ Drainage of Peritoneal Cavity, Percutaneous Approach (ICD-10-PCS; principal; 2018-12-27)
PROC: BW40ZZZ Ultrasonography of Abdomen (ICD-10-PCS; 2018-12-27)
DX: C25.9 Malignant neoplasm of pancreas, unspecified (principal); C78.7 Secondary malignant neoplasm of liver and intrahepatic bile duct; C79.51 Secondary malignant neoplasm of bone; R18.8 Other ascites; I10 Essential (primary) hypertension; E11.9 Type 2 diabetes mellitus without complications; E78.5 Hyperlipidemia, unspecified; K21.9 Gastro-esophageal reflux disease without esophagitis; D64.9 Anemia, unspecified; E46 Unspecified protein-calorie malnutrition; Z68.28 Body mass index [BMI] 28.0-28.9, adult; M10.9 Gout, unspecified; Z79.4 Long term (current) use of insulin; Z79.899 Other long term (current) drug therapy; Z88.2 Allergy status to sulfonamides
CPT/HCPCS: 32554; 36415; 36416; 74176; 80048; 80053; 82248; 82378; 83615; 84100; 84145; 84550; 85025; 85610; 85730; 86301; 96372; 96374; 96375; G0378; J1650; J1815; J2001; J2270; J2405; J3010; Q0167

== ENCOUNTER 2018-12-31 18:46 | Inpatient (IN) | payer MEDICARE, OTHER ==
[~2018-12-31 18:46] MED LIST changes: -Acetaminophen 500 MG TAB PO SCH; +ISOVUE-370 76%-LOCM 1 ML ONE; -Sodium Chloride 0.9% 20 ML ONE; -diphenhydrAMINE 25 MG CAP PO SCH
[2018-12-31] MEDS ORDERED: Diltiazem HCl 125 MG, Admixture Fee 1 EACH in Sodium Chloride 0.9% 100 ML IVPB SCH (19:30)
[2018-12-31] MEDS ORDERED: Magnesium 2 GM/50 ML BAG (IN WATER) ONE ×2 (19:30→23:26)
[2018-12-31] MEDS ORDERED: Diltiazem 125 MG/25 ML ONE (19:35)
[2018-12-31] MEDS ORDERED: Morphine 4 MG/ML VIAL ONE (19:59)
[2018-12-31 20:05] LABS: Hemoglobin 10.7 g/dL (14.0-18.0); Mean Corpuscular HGB CONC 31.4 g/dL (32.0-36.0); Mean Corpuscular Hemoglobin 31.6 pg (27.0-31.0); Mean Platelet Volume 7.1 fL (7.4-10.4); Platelet Count 180 thou/uL (130-400); Red Blood Cell (RBC) Count 3.37 mill/uL (4.70-6.10); White Blood Cell (WBC) Count 61.2 thou/uL (4.8-10.8)
[2018-12-31 20:11] LABS: INR-International Normal Ratio 1.1; Prothrombin Time 14.2 SEC (12.0-14.7)
[2018-12-31 20:15] LABS: Band 4 % (5-11); MDiff Complete? YES; Neutrophil 96 % (42-75)
--- NOTE | 2018-12-31 20:16 | RAD ---
SUPINE PORTABLE CHEST: 12/31/18 INDICATIONS: Shortness of breath. COMPARISON: 06/15/18. No confluent infiltrate or consolidation. I cannot exclude some hazy alveolar infiltrate in the right lung base, some of which may represent atelectasis. Left lung is clear. Mediport catheter overlies t he SVC. IMPRESSION: Question infiltrate or atelectasis in the right lung base. Follow-up recommended. POS: AGW
[2018-12-31 20:17] LABS: Bilirubin, Total 0.4 mg/dL (0.2-1.2); Calcium 7.5 mg/dL (7.8-10.44); Chloride 104 mmol/L (98-107); Potassium 4.4 mmol/L (3.5-5.1); Sodium 139 mmol/L (136-145)
--- NOTE | 2018-12-31 20:19 | RAD ---
AP PELVIS: 12/31/18 HISTORY: Fall. Residual contrast from a previous CT is seen within the colon. The pelvic ring is intact without evid ence of fracture. Osseous metastatic disease is again demonstrated. IMPRESSION: No evidence of fracture. POS: ZOE
[2018-12-31 20:25] LABS: Albumin 2.9 g/dL (3.4-4.8)
[2018-12-31 20:27] LABS: Globulin 2.3 g/dL (2.4-3.5); Glucose 101 mg/dL (80-115); Protein, Total 5.2 g/dL (5.8-8.1)
[2018-12-31 20:29] LABS: Anion Gap 23 mmol/L (10-20); Carbon Dioxide 18 mmol/L (23-31)
[2018-12-31 20:30] LABS: Alkaline Phosphatase 342 U/L (40-150); D-Dimer Test 6.62 *mcg/mL (0.27-0.43)
[2018-12-31 20:31] LABS: BUN (Urea Nitrogen) 18 mg/dL (8.4-25.7); Calc. Creatinine Clearance 0 mL/min (70-130); Estimated GFR-MDRD Greater than 90
[2018-12-31 20:32] LABS: AST (SGOT) 56 U/L (5-34)
[2018-12-31 20:33] LABS: ALT (SGPT) 12 U/L (8-55); Magnesium 1.4 mg/dL (1.6-2.6)
[2018-12-31 20:39] LABS: CKMB 5.1 ng/mL (0-6.6)
[2018-12-31 20:47] LABS: Bilirubin Negative (Negative); Blood, Urine Negative (Negative); Clarity Clear (Clear); Glucose, Urine (Dipstick) Normal (Negative); Leukocyte Negative Leu/uL (Negative); Nitrite Negative (Negative); Protein, Urine (Dipstick) 30 mg/dL (Neg-Trace); RBC/HPF 0-3 HPF (0-3); Squamous Epithelial None Seen HPF (0-3); Urobilinogen Normal mg/dL (Less than 2)
[2018-12-31 21:02] LABS: Bacteria/HPF 1+ HPF (None Seen)
[2018-12-31] MEDS ORDERED: Piperacillin/Tazobactam 3.375 GM VIAL ONE (21:15)
--- NOTE | 2018-12-31 21:44 | CT ---
CT angiogram of chest performed with intravenous contrast enhancement with 3-D reconstructions: HISTORY: History of pancreatic cancer and chemotherapy. Cough. COMPARISON: None. FINDINGS: There are moderate bilateral pleural effusions right larger than left with bibasilar atelec tasis. There is a 7 mm pleural-based nodule seen along the undersurface of the right minor fissure. Small mediastinal and hilar lymph nodes are noted. The thoracic aorta is normal in caliber. There is good pulmonary artery opacification and no CT evidence for pulmonary embolus. Abdominal findings will be described in the subsequent report. IMPRESSION: 1. No CT evidence of pulmonary embolus. 2. Bilateral pleural effusions right larger than left with bibasilar atelectasis. 3. Osseous metastatic disease.
--- NOTE | 2018-12-31 21:51 | CT ---
CT Abdomen Pelvis W Con HISTORY: Pancreatic cancer. Patient had chemotherapy Wednesday. Abdominal pain. COMPARISON: 12/27/2018 and 05/17/2018 CT examinations. FINDINGS: There are moderate bilateral pleural effusions right larger than left with bibasilar atelec tasis. The liver is small and shows numerous metastatic lesions, this is been noted on the previous exam. Th e spleen shows no focal abnormalities. The gallbladder is mildly distended. The pancreatic tail mass is unchanged. Right and left adrenal glands are normal in appearance. A solid mass measuring 3.7 cm is seen within the right kidney very suspicious for renal cell neoplasm. Hypodensity seen in both kidneys are most likely cysts. There is no significant periaortic or mesenteric adenopathy. Marked ascites is again de monstrated, the degree of ascites is reduced as compared to the most recent prior study. Diffuse osseous metastatic disease is again demonstrated. IMPRESSION: 1. Bilateral pleural effusions with bibasilar atelectasis. 2. Diffuse liver metastatic disease. 3. Pancreatic tail mass. 4. Right renal mass. 5. Moderate ascites somewhat reduced as compared to the prior exam. 6. Diffuse osseous metastatic disease.
[2018-12-31] MEDS ORDERED: Norepinephrine 8 MG in Dextrose 5% in Water 242 ML IVPB PRN (22:09)
[2018-12-31] MEDS ORDERED: Digoxin 0.5 MG/2 ML AMP ONE (22:59)
[2018-12-31 23:49] LABS: RBC Count-Automated (BF) 5192 /cumm; WBC/Nucleated-Auto (BF) 496 uL
[2018-12-31] MEDS ORDERED: Ondansetron PF 4 MG/2 ML Vial ONE (23:52)
[2018-12-31 23:58] LABS: BF Color Yellow; Body Fluid Source Peritoneal Fluid; Clarity Hazy (Clear); Tube # EDTA
[2019-01-01] MEDS ORDERED: Ondansetron ODT 4 MG TAB SL PRN (00:13)
[2019-01-01] MEDS ORDERED: Ondansetron PF 4 MG/2 ML Vial IVP PRN ×2 (00:13→00:38)
[2019-01-01] MEDS ORDERED: Sodium Chloride 77 MEQ in Dextrose 10% in Water 1,000 ML IV SCH (00:15)
[2019-01-01 00:19] LABS: BF Segmented Neutrophils 33 %; Cell Count Non Hematic 60 %; Lymphocytes 7 %
[2019-01-01] MEDS ORDERED: CCU Electrolyte Replacement 1 EACH IVPB ONE (00:38)
[2019-01-01] MEDS ORDERED: Dextrose 5% in Water 1,000 ML IV PRN (00:38)
[2019-01-01] MEDS ORDERED: Dextrose 50% Abboject 50 ML SYRINGE SLOW IVP PRN (00:38)
[2019-01-01] MEDS ORDERED: Senokot S 8.6-50 MG TAB PO PRN (00:38)
[2019-01-01] MEDS ORDERED: Norepinephrine 8 MG/0.9% NS 250 ML IVPB PRN (00:38)
--- NOTE | 2019-01-01 00:49 | PDOC.EVN ---
Addendum - Attending - Attending Attestation Date/Time: 01/01/19 0031 I personally evaluated the patient and discussed the management with Dr. Emerson and Maki See the History, Examination, Assessment and Plan documented in separate note . 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 Patient with recent new onset ascites had paracentesis performed last week. Patient with hypogylcemia today unresponsive to IV dextrose by EMS at his home patient brought to ER with new onset atrial fibrillation with RVR , paracentesis done ER with cloudy fluid for culture otherwise lab notable for WBCs 66,000. daughter states was given neulasta yesterday. Patient bolused with diltiazem and IV drip started as well as IV digoxin, may need BB if heart rate remains refractory plan echocardiogram in AM. Consider SBP Sepsis work up and empirical Antibiotic coverage started in ER with vancomycin and zosyn. Patient desire to be full code at this time. 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
[2019-01-01] MEDS ORDERED: Metoprolol Tartrate 5 MG/5 ML VIAL IVP PRN (00:51)
[2019-01-01] MEDS ORDERED: PHOS-NAK 1 PKT PACK PO PRN ×2 (00:57)
[2019-01-01] MEDS ORDERED: Potassium Phosphate 15 MMOL in Sodium Chloride 0.9% 250 ML 250 ML IV PRN (00:57)
[2019-01-01] MEDS ORDERED: Potassium Phosphate 9 MMOL in Sodium Chloride 0.9% 100 ML IVPB PRN (00:57)
[2019-01-01] MEDS ORDERED: CCU ELECTROLYTE REPLACEMENT PROTOCOL FS PRN (00:57)
[2019-01-01] MEDS ORDERED: Potassium Chloride 40 MEQ in Premix Bag 1 BAG IVPB PRN (00:57)
[2019-01-01] MEDS ORDERED: Potassium Chloride 20 MEQ TAB PO PRN (00:57)
[2019-01-01] MEDS ORDERED: Magnesium Oxide 400 MG TAB PO PRN ×2 (00:57)
[2019-01-01] MEDS ORDERED: Magnesium 2 GM/50 ML 2 GM in Premix Bag 1 BAG IVPB PRN (00:57)
[2019-01-01] MEDS ORDERED: Potassium Phosphate 12 MMOL in Sodium Chloride 0.9% 250 ML 250 ML IV PRN (00:57)
[2019-01-01] MEDS ORDERED: Potassium Chloride 40 MEQ in Sodium Chloride 0.9% 250 ML 250 ML IVPB PRN (00:57)
[2019-01-01] MEDS ORDERED: Enoxaparin Sodium 80 MG/0.8 ML SYRINGE SC SCH (01:00)
[2019-01-01 01:28] LABS: Phosphorus 3.5 mg/dL (2.3-4.7)
--- NOTE | 2019-01-01 01:31 | PDOC.FPRHP ---
- History of Present Illness Chief Complaint: septic shock History of Present Illness: 68yo CM with h/o metastatic pancreatic cancer presents via EMS for AMS 2/2 hypoglycemia. Pt states he was sitting at home and began to experience generalized weakness. He states he slid off the bed onto the floor, no fall, and adult son who lives at home could not hep him up. EMS was called, pt initially hypoglycemia, BG <30, responded to a couple amps of glucose. Pt did not want to be transported to the hospital per report, but eventually agreed. Pt in ED currently denies any CP, dyspnea, fever/chills, lightheadedness, dizziness, n/v, or palpitations. Endorses chronic diarrhea. No known sick contacts. ED Course: In the ED, pt hypoglycemia and AMS were resolved, however pt was found to be in afib with RVR with rates to 180. Initial bolus of dilt, and started on dilt gtt to 15, given 0.5mg dig, and 4g Mag. Pt was still in afib with rate in the 130s upon transfer to the floor. Pt had initial Bcx and Ucx taken, started on vanc and zosyn, and a diagnostic paracentesis was obtained per to transfer to the floor. - Allergies/Adverse Reactions Allergies Allergy/AdvReac Type Severity Reaction Status Date / Time Sulfa (Sulfonamide Allergy Unknown Verified 12/28/18 01:44 Antibiotics) - Home Medications Medication Instructions Recorded Confirmed Type Allopurinol [Zyloprim] 300 mg PO DAILY tablet 12/28/18 01/01/19 Rx Diphenoxylate HCl/Atropine 2 tab PO QID PRN 12/28/18 01/01/19 History [Lomotil] Dronabinol [Marinol] 5 mg PO BID-AC cap 12/28/18 01/01/19 Rx Insulin Detemir [Levemir Flextouch] 25 unit SQ DAILY 12/28/18 01/01/19 History Lisinopril [Zestril] 10 mg PO DAILY tab 12/28/18 01/01/19 Rx Loperamide HCl/Simethicone 1 tablet PO ASDIR PRN 12/28/18 01/01/19 History [Imodium Multi-Symptom Relief Caplet] Potassium Chloride [K-Dur] 20 meq PO BID-WM tab 12/28/18 01/01/19 Rx - History PMHx: Metastatic pancreatic cancer, HTN, DMII, HLD PSHx: right port-a-cath placement FHx: noncontributory Social: Lives with adult son. Denies any tob or illicits. Social drinker. - Review of Systems General: reports: fatigue, other (generalized weakness). denies: fever/chills, night sweats ENT: denies: nasal congestion, rhinorrhea Respiratory: denies: cough, congestion, shortness of breath Cardiovascular: reports: edema. denies: chest pain, palpitation Gastrointestinal: reports: diarrhea (chronic). denies: nausea, vomiting, constipation Genitourinary: denies: incontinence, dysuria Skin: denies: rashes Musculoskeletal: reports: pain (lower abdominal pressure associated with cancer) Neurological: reports: weakness. denies: numbness, syncope - Vital signs BP: 141/82 HR: 153 RR: 20 Tmax: 98.0 Pox: 98% on RA Wt: 78kg - Physical Exam Constitutional: NAD, awake, alert and oriented HEENT: normocephalic and atraumatic, PERRLA, EOMI, conjunctiva clear, MMM Neck: supple, trachea midline Heart: no murmurs/rubs/gallops, other (tachycardia with an irregurally irregular rythm. 1+ pitting edema to mid-buenrostro bilaterally) Lungs: CTAB, no respiratory distress, good air movement, no rales/rhonchi, no wheezing Abdomen: soft, bowel sounds present, other (mildly TTP along lower abdomen, no rebound or guarding. Mildly distended but improved per patient after paracentesis this last Wednesday.) Neurological: no focal deficit Skin: no rash/lesions Heme/Lymphatic: other (port in place on right upper chest) FMR H&P: Results - Labs Result Diagrams: 01/01/19 03:44 01/01/19 03:44 Lab results: WBC 61.2 thou/uL (4.8-10.8) H* 12/31/18 19:48 Hgb 10.7 g/dL (14.0-18.0) L 12/31/18 19:48 Hct 33.9 % (42.0-52.0) L 12/31/18 19:48 MCV 101.0 fL (78.0-98.0) H 12/31/18 19:48 Plt Count 180 thou/uL (130-400) 12/31/18 19:48 Band Neuts % (Manual) 4 % (5-11) L 12/31/18 19:48 Sodium 139 mmol/L (136-145) 12/31/18 19:48 Potassium 4.4 mmol/L (3.5-5.1) 12/31/18 19:48 Chloride 104 mmol/L (98-107) 12/31/18 19:48 Carbon Dioxide 18 mmol/L (23-31) L 12/31/18 19:48 BUN 18 mg/dL (8.4-25.7) 12/31/18 19:48 Creatinine 0.66 mg/dL (0.7-1.3) L 12/31/18 19:48 Glucose 101 mg/dL (80-115) 12/31/18 19:48 Calcium 7.5 mg/dL (7.8-10.44) L 12/31/18 19:48 Total Bilirubin 0.4 mg/dL (0.2-1.2) 12/31/18 19:48 AST 56 U/L (5-34) H 12/31/18 19:48 ALT 12 U/L (8-55) 12/31/18 19:48 Alkaline Phosphatase 342 U/L (40-150) H 12/31/18 19:48 CK-MB (CK-2) 5.1 ng/mL (0-6.6) 12/31/18 19:48 Serum Total Protein 5.2 g/dL (5.8-8.1) L 12/31/18 19:48 Albumin 2.9 g/dL (3.4-4.8) L 12/31/18 19:48 Urine Ketones Negative mg/dL (Negative) 12/31/18 20:30 Urine Blood Negative (Negative) 12/31/18 20:30 Urine Nitrite Negative (Negative) 12/31/18 20:30 Ur Leukocyte Esterase Negative Lilia/uL (Negative) 12/31/18 20:30 Urine RBC 0-3 HPF (0-3) 12/31/18 20:30 Urine WBC 4-6 HPF (0-3) A 12/31/18 20:30 Ur Squamous Epith Cells None Seen HPF (0-3) 12/31/18 20:30 Urine Bacteria 1+ HPF (None Seen) 12/31/18 20:30 - Radiology Interpretation CT scan - abdomen Status: report reviewed by me (BL pleural effusions, diffuse liver mets, panceatic tail mass, Right renal mass, moderate ascities, diffuse osseuous disease) CT scan - chest Status: report reviewed by me (negative for PE. osseous mets.) FMR H&P: A/P - Problem List (1) Septic shock Current Visit: Yes Status: Acute Code(s): A41.9 - SEPSIS, UNSPECIFIED ORGANISM; R65.21 - SEVERE SEPSIS WITH SEPTIC SHOCK (2) Atrial fibrillation with RVR Current Visit: Yes Status: Acute Code(s): I48.91 - UNSPECIFIED ATRIAL FIBRILLATION (3) Elevated troponin Current Visit: Yes Status: Acute Code(s): R74.8 - ABNORMAL LEVELS OF OTHER SERUM ENZYMES (4) Metastasis from pancreatic cancer Current Visit: Yes Status: Chronic Code(s): C79.9 - SECONDARY MALIGNANT NEOPLASM OF UNSPECIFIED SITE; C25.9 - MALIGNANT NEOPLASM OF PANCREAS, UNSPECIFIED (5) Diabetes Current Visit: Yes Status: Acute Code(s): E11.9 - TYPE 2 DIABETES MELLITUS WITHOUT COMPLICATIONS - Plan 68yo CM with h/o metastatic pancreatic cancer presents via EMS for AMS 2/2 hypoglycemia found to be in afib with RVR and septic shock. #Septic shock from unknown source - WBC 61.2, ROS negative, CTA Chest and Abd/Pelvis CT no signs of infection, UA clean. Consider SBP. - Started on vanc an zosyn, will cont - Procal ordered - Responded to 2L NS bolus in ED< BP 110s/70s and stable at this time, will monitor and consider adding pressors if needed - BCx and UCx pending - diagnostic paracentesis performed in ED, awaiting studies and Cx #Afib with RVR - Initial HR to 160s, given dilt bolus and started on dilt gtt to 15, 0.5mg digoxin, and 4g Mag given in ED -Will give lopressor push if still elevated - Asx and BP stable at 110s/70s, will monitor closely - Dr. Coleman, Cards, consulted - recommended CCM, no amio at this time, will reeval pt in AM, apprec recs - On Therapeutic lovenox - ECHO in AM # Elevated Troponin, likely demand ischemia 2/2 Afib with RVR - EKG afib with RVR, trop initially elevated, asx, will trend trops - On therapeutic lovenox for afib with RVR, cont to monitor #Elevated D-dimer - initially elevated, CTA chest r/o PE # Metastatic Pancreatic Cancer - Known to Dr. Simmons, will make aware pt is admitted in AM - Palliative care consulted for assistance with goals of care and advanced directives, apprec recs #IDDMII - Initially hypoglycemic on presentation, resolved in ED -Is on 25u Levemir at home. Will hold at this time. Will reeval sugars in AM and adjust dosing as needed. - Will begin q2h accuchecks with diabetic hyperglycemic protocol and mild SS insulin - monitor and adjust as needed # HTN - home home lisinopril at this time VTE: Therapeutic lovenox Diet: NPO Code: Full - discussed at length with pt and daughter and son at bedside, wishes to be full code but not "kept alive as a vegetable," recommended relaying these wishes to family and having wishes in writing, consulted Palliative care to help with discussion Disposition/LOS: Admit to CCU for afib with RVR, septic shock 2/2 unknown source, monitor closely pending workup and management. Anticipate hospitalization 3-5 days. FMR H&P: Upper Level - Pertinent history I was present with the academic intern during the HPI. I scribed the above HPI while obtained. It should be noted patient was a poor historian. - Pertinent findings Pt resting in bed. Appears somewhat tired. Pt abdomen distended. NTTP. Cardio: Irregularly irregular, tachy Resp: CTA-B, no wheezes or crackles. - Plan Date/Time: 01/01/19 0124 IAllan, PGY-3, have evaluated this patient and agree with findings/ plan as outlined by academic intern resident. Pertinent changes/additions are listed here. I made changes to above plan. Pt has septic shock 2/2 unknown source. U/A neg, CTA and CXR show no acute path. On broad spectrum abx Vanc and zosyn. Awaiting Paracentesis cx and studies. ECHO ordered due to A.fib w/ rvr and r/o source infection. Pt maxed out on diltiazem. ER doc spoke with Dr. Ibrahim, Recommends Lopressor push if HR still elevated. Pt denies chest pain. Follow cards recs. Pt has extensive metastic pancreatic cancer. Consult heme/onc in AM. Pt recieved chemo drug yesterday which can elevate WBC. Yet WBC is severly elevated at 61. Reviewed all pt records and highest recorded WBC was 18 in the last few months. Likely underlying infection. Addendum - Attending - Attending Attestation Date/Time: 01/01/19 0750 I personally evaluated the patient and discussed the management with Dr. Emerson and Maki I agree with the History, Examination, Assessment and Plan documented above with any addition or exceptions noted below. Heart rate still poorly controlled despite diltiazem and digoxin will add BB per Cardiology rec as needed patient BP stable. Marked leucocytosis consider infectious verse Ca related etiology will continue empirical antibiotic AM Oncology Consultation.
[2019-01-01 01:38] LABS: Troponin I 0.392 ng/mL (< 0.028)
[2019-01-01] MEDS: Vancomycin HCl 1 GM in Premix Bag 1 BAG IVPB SCH ×2 (01:49→15:04)
[2019-01-01] MEDS: Piperacillin/Tazobactam 3.375 GM in Sodium Chloride 0.9% 100 ML IVPB SCH ×4 (03:27→20:16)
[2019-01-01 03:59] LABS: Hemoglobin 8.4 g/dL (14.0-18.0); Platelet Count 134 thou/uL (130-400)
[2019-01-01] MEDS: HumaLOG 300 UNITS/3 ML VIAL SC PRN (03:59)
[2019-01-01 04:05] LABS: Hemoglobin 8.4 g/dL (14.0-18.0); Mean Corpuscular HGB CONC 30.6 g/dL (32.0-36.0); Mean Corpuscular Hemoglobin 30.7 pg (27.0-31.0); Mean Platelet Volume 7.3 fL (7.4-10.4); Platelet Count 135 thou/uL (130-400); RBC Distribution Width 16.7 % (11.5-14.5); Red Blood Cell (RBC) Count 2.72 mill/uL (4.70-6.10); White Blood Cell (WBC) Count 54.4 thou/uL (4.8-10.8)
[2019-01-01] MEDS ORDERED: Morphine 4 MG/ML VIAL SLOW IVP PRN (04:20)
[2019-01-01 04:22] LABS: ALT (SGPT) 8 U/L (8-55); AST (SGOT) 39 U/L (5-34); Albumin 2.4 g/dL (3.4-4.8); Alkaline Phosphatase 286 U/L (40-150); Anion Gap 14 mmol/L (10-20); BUN (Urea Nitrogen) 14 mg/dL (8.4-25.7); Bilirubin, Total 0.4 mg/dL (0.2-1.2); Calc. Creatinine Clearance 109 mL/min (70-130); Calcium 7.3 mg/dL (7.8-10.44); Carbon Dioxide 23 mmol/L (23-31); Chloride 102 mmol/L (98-107); Estimated GFR-MDRD Greater than 90; Globulin 2.3 g/dL (2.4-3.5); Glucose 221 mg/dL (80-115); Potassium 3.9 mmol/L (3.5-5.1); Protein, Total 4.7 g/dL (5.8-8.1); Sodium 135 mmol/L (136-145)
[2019-01-01 05:11] LABS: Anisocytosis SLIGHT = 6-15 cells (100X) (0-5/hpf); Band 5 % (5-11); Lymphocytes 2 % (21-51); MDiff Complete? YES; Neutrophil 93 % (42-75); Platelet Morphology Comment Appears Adequate
[2019-01-01] MEDS: Diltiazem HCl 125 MG, Admixture Fee 1 EACH in Sodium Chloride 0.9% 100 ML IVPB SCH ×2 (06:04→15:03)
[2019-01-01] MEDS: Allopurinol 300 MG TAB PO SCH (08:14)
[2019-01-01] MEDS: Famotidine/PF 20 mg/2ml Vial SLOW IVP SCH ×2 (08:17→20:16)
[2019-01-01] MEDS ORDERED: Vancomycin HCl 1 GM in Premix Bag 1 BAG IVPB SCH (10:00)
--- NOTE | 2019-01-01 12:37 | CON ---
DATE OF CONSULTATION: REASON FOR CONSULTATION: Atrial fibrillation. PRIMARY DIGITAL CONTROLS TECHNICAL OFFICER: None. HISTORY OF PRESENT ILLNESS: Mr. Samaniego is an unfortunate 68-year-old gentleman, who recently was diagnosed with metastatic pancreatic cancer. He recently presented to the hospital with weakness, fatigue, and tachycardia. His heart rate was in the 140s to 150s. He was given IV Cardizem in addition to digoxin for better rate control with little improvement. His white blood cell count was also markedly elevated in the 50,000 range. He has had fevers and chills present. He also was found to be markedly hypoglycemic with difficulty on maintaining a blood sugar greater than 30. PAST MEDICAL HISTORY: As above including hypertension, diabetes mellitus, hyperlipidemia, Port-A-Cath placement. SOCIAL HISTORY: No current tobacco or alcohol use. HOME MEDICATIONS: Include, 1. Allopurinol. 2. Lomotil. 3. Marinol. 4. Levemir. 5. Zestril. 6. K-Dur. 7. Loperamide. REVIEW OF SYSTEMS: Ten-point review of systems is reviewed as above, otherwise negative. PHYSICAL EXAMINATION: GENERAL: Patient is a pleasant male, who is in no acute distress. The patient appears their stated age. He does appear pale and weak. VITAL SIGNS: Blood pressure 106/75, pulse 134, respiratory rate 20. NEUROLOGIC: The patient is alert and oriented x3 with no focal neurologic deficits. HEENT: Sclerae without icterus. Mouth has moist mucous membranes with normal pallor. NECK: No JVD. Carotid upstroke brisk. No bruits bilaterally. LUNGS: Clear to auscultation with unlabored respirations. BACK: No scoliosis or kyphosis. CARDIAC: Irregularly irregular rate and rhythm with normal S1 and S2. No S3 or S4 noted. No significant rubs, murmurs, thrills, or gallops noted throughout the precordium. PMI is not displaced. There is no parasternal heave. ABDOMEN: Soft, nontender, nondistended. No peritoneal signs present. No hepatosplenomegaly. No abnormal striae. EXTREMITIES: 2+ femoral and 2+ dorsalis pedis pulses. No cyanosis, clubbing, or edema. SKIN: No gross abnormalities. PERTINENT LABORATORY DATA: White blood cell count 61,000, hemoglobin 8.4, platelet count 135. IMPRESSION: 1. Atrial fibrillation with rapid ventricular response. 2. Metastatic pancreatic cancer. 3. Ascites. RECOMMENDATIONS: We will continue IV Cardizem. We will supplement with p.o. Cardizem in hopes that his rate decreases. Can also consider beta-josh therapy. If rate continues to be elevated, would consider esmolol. This maybe in a direct response to his underlying condition, which may include sepsis and pancreatic cancer. His echo did show suggestion of normal LVEF with no pericardial effusion. There was ascites fluid noted around the liver. Based on the above, prognosis appears guarded. Job ID: [id number]
[2019-01-01] MEDS: Enoxaparin Sodium 80 MG/0.8 ML SYRINGE SC SCH (12:41)
[2019-01-01] MEDS ORDERED: Magnesium 2 GM/50 ML 2 GM in Premix Bag 1 BAG IVPB SCH (14:45)
[2019-01-01] MEDS ORDERED: Potassium Chloride 20 MEQ in Premix Bag 1 BAG IVPB SCH (15:00)
--- NOTE | 2019-01-01 16:41 | CON ---
DATE OF CONSULTATION: 01/01/2019 SERVICE: Pulmonary Medicine. REASON FOR CONSULTATION: ICU patient. HISTORY OF PRESENT ILLNESS: The patient is a 68-year-old white male with past medical history significant for diabetes mellitus. He actually takes insulin at home. Because of pancreatic cancer, which is quite advanced, the patient has a poor appetite. He only eats sporadically. As such, he took his insulin, but unfortunately, would not able to eat anything. He had a syncopal event. After his sugars were replaced, he woke up and was discovered to be in atrial fibrillation with RVR. He was brought to the emergency department. He currently feels that he is back to his usual state of health. Prior to this event, nothing was out of the ordinary for him. He denies any current fevers or chills. He does have nausea almost continuously, but has not been vomiting. He is passing gas and having normal bowel movements for him. PAST MEDICAL HISTORY: 1. Pancreatic cancer, advanced. 2. Type-2 diabetes mellitus. 3. Hypertension. 4. Dyslipidemia. PAST SURGICAL HISTORY: Port catheter placement. FAMILY HISTORY: Noncontributory. SOCIAL HISTORY: He lives with his son. He does not currently use any alcohol, tobacco, or illicit drugs. He has no exposure to chemicals, dust, asbestos, or tuberculosis. ALLERGIES: SULFA. MEDICATIONS: List of inpatient medications was reviewed. No specific updates were made. REVIEW OF SYSTEMS: General; head, ears, eyes, nose, and throat; cardiovascular; respiratory; GI; ; musculoskeletal; neurologic; and skin is negative except as mentioned in the HPI. PHYSICAL EXAMINATION: VITAL SIGNS: Afebrile. Pulse 137, blood pressure 113/71, respirations 20, saturation 96%, currently on 2 L nasal cannula. GENERAL: The patient is awake and alert, in no apparent distress. LUNGS: Decent air entry. Dependent crackles are noted. HEART: Tachycardic. Irregular. ABDOMEN: Soft, nontender, and nondistended. Bowel sounds are positive. MUSCULOSKELETAL: No cyanosis or clubbing. There is no pitting. NEUROLOGIC: Grossly nonfocal. LABORATORY DATA: WBC 54.4, hemoglobin 8.4 and stable, platelets 135,000. INR 1.1. Basic metabolic profile is essentially unremarkable. Glucose ranges from 170 to 221, though it was 30 on presentation. Magnesium 1.1, alkaline phosphatase 286. AST and ALT are nearly within the normal limits. Urinalysis is unremarkable. Paracentesis fluid was not consistent with infected space. IMAGING DATA: 1. Echocardiogram demonstrates 50% to 55% ejection fraction. Mild valvular abnormalities are present. No significant diastology is noted. 2. CT of the abdomen and pelvis demonstrates bilateral pleural effusions. Diffuse liver metastatic disease. Pancreatic tail mass. Right renal mass. Moderate ascites. Diffuse osseous metastatic disease. 3. CTA of the chest demonstrates no evidence of PE. There are some bilateral pleural effusions, that are present. Osseous metastatic disease is present throughout. ASSESSMENT: 1. Syncope. 2. Hypoglycemia. 3. Atrial fibrillation with rapid ventricular response. 4. Pancreatic cancer, widely metastatic. 5. Pleural effusions. 6. Leukemoid reaction, suspected. 7. Severe protein-calorie malnutrition. DISCUSSION AND PLAN: I doubt that this patient has an infectious syndrome. My suspicion is that he has developed a leukemoid reaction associated with the severe stress that the hypoglycemia put on his body. Furthermore, he has an anemia. It seems to be slightly worse than his baseline. As such, it would be reasonable type and cross with tomorrow morning's laboratories. Pulmonary/Critical Care will follow very closely for the time being. Once his heart rate is under slightly better control, he will be stable for transition out of the ICU. 70 minutes have been devoted to this patient in various activities. I personally reviewed all imaging studies and laboratory data noted within this document. For fifty percent of this time, I was interacting with the patient at the bedside or coordinating care with the care team. For the remainder of the time I was immediately available to the patient in the hospital unit. Job ID: [id number] [facility]
[2019-01-01] MEDS: Metoprolol Tartrate 25 MG TAB PO SCH (20:16)
[2019-01-02] MEDS: Enoxaparin Sodium 80 MG/0.8 ML SYRINGE SC SCH ×4 (00:13→23:59)
[2019-01-02] MEDS: Vancomycin HCl 1 GM in Premix Bag 1 BAG IVPB SCH (02:07)
[2019-01-02] MEDS: Piperacillin/Tazobactam 3.375 GM in Sodium Chloride 0.9% 100 ML IVPB SCH ×4 (03:51→21:27)
[2019-01-02] MEDS: HumaLOG 300 UNITS/3 ML VIAL SC PRN ×2 (04:48→23:55)
[2019-01-02 05:23] LABS: ALT (SGPT) 10 U/L (8-55); AST (SGOT) 26 U/L (5-34); Albumin 2.2 g/dL (3.4-4.8); Alkaline Phosphatase 259 U/L (40-150); Anion Gap 14 mmol/L (10-20); BUN (Urea Nitrogen) 13 mg/dL (8.4-25.7); Bilirubin, Total 0.5 mg/dL (0.2-1.2); Calc. Creatinine Clearance 112 mL/min (70-130); Calcium 7.2 mg/dL (7.8-10.44); Carbon Dioxide 21 mmol/L (23-31); Chloride 104 mmol/L (98-107); Estimated GFR-MDRD Greater than 90; Globulin 2.3 g/dL (2.4-3.5); Glucose 164 mg/dL (80-115); Protein, Total 4.5 g/dL (5.8-8.1); Sodium 135 mmol/L (136-145)
[2019-01-02 05:32] LABS: Anisocytosis SLIGHT = 6-15 cells (100X) (0-5/hpf); Band 7 % (5-11); Elliptocytes SLIGHT = 2-5 cells (100X) (0-1/hpf); Hemoglobin 7.9 g/dL (14.0-18.0); MDiff Complete? YES; Mean Corpuscular HGB CONC 31.8 g/dL (32.0-36.0); Mean Corpuscular Hemoglobin 32.2 pg (27.0-31.0); Mean Platelet Volume 8.5 fL (7.4-10.4); Neutrophil 93 % (42-75); Platelet Count 78 thou/uL (130-400); Platelet Morphology Comment Appears Decreased; RBC Distribution Width 16.5 % (11.5-14.5); Red Blood Cell (RBC) Count 2.45 mill/uL (4.70-6.10); White Blood Cell (WBC) Count 33.1 thou/uL (4.8-10.8)
[2019-01-02] MEDS: Diltiazem HCl 125 MG, Admixture Fee 1 EACH in Sodium Chloride 0.9% 100 ML IVPB SCH ×2 (06:14→16:35)
--- NOTE | 2019-01-02 06:51 | PDOC.FM ---
- Subjective Subjective: NAEO. Brendan wekaness, heart palpitations. Reports improved abd pain. no fever, chills. - Objective Vital Signs & Weight: Vital Signs (12 hours) Temp Pulse Ox 01/02/19 04:00 98.0 F 01/02/19 00:00 98.0 F 01/01/19 20:00 98.4 F 94 L Weight Weight 74.9 kg Most Recent Monitor Data Heart Rate from ECG 106 NIBP 88/62 NIBP BP-Mean 70 Respiration from ECG 23 SpO2 98 I&O: 12/31/18 01/01/19 01/02/19 06:59 06:59 06:59 Intake Total 718 1221 Output Total 785 1100 Balance -67 121 Result Diagrams: 01/02/19 04:46 01/02/19 04:46 Phys Exam - Physical Examination cachectic HEENT: PERRLA, moist MMs Respiratory: no wheezing, clear to auscultation bilateral Cardiovascular: no significant murmur, irregular Gastrointestinal: soft, non-tender, positive bowel sounds fluid wave 1+ edema in lower legs Neurological: non-focal, moves all 4 limbs Psychiatric: normal affect, A&O x 3 Dx/Plan (1) Ascites Code(s): R18.8 - OTHER ASCITES Status: Acute (2) Metastasis from pancreatic cancer Code(s): C79.9 - SECONDARY MALIGNANT NEOPLASM OF UNSPECIFIED SITE; C25.9 - MALIGNANT NEOPLASM OF PANCREAS, UNSPECIFIED Status: Chronic (3) Septic shock Code(s): A41.9 - SEPSIS, UNSPECIFIED ORGANISM; R65.21 - SEVERE SEPSIS WITH SEPTIC SHOCK Status: Acute (4) Atrial fibrillation with RVR Code(s): I48.91 - UNSPECIFIED ATRIAL FIBRILLATION Status: Acute (5) Elevated troponin Code(s): R74.8 - ABNORMAL LEVELS OF OTHER SERUM ENZYMES Status: Acute (6) Diabetes Code(s): E11.9 - TYPE 2 DIABETES MELLITUS WITHOUT COMPLICATIONS Status: Acute - Plan Plan: 68yo CM with h/o metastatic pancreatic cancer presents via EMS for AMS 2/2 hypoglycemia found to be in afib with RVR and septic shock. #Septic shock from unknown source - WBC downtrending to 33, afebrile, bcx NGTD, will finalize this evening. - ascitic fluid studies not consistent with infection at this time -picture more consistent with leukemoid reaction from hypoglycemia -continue empiric abx pending finalized blood cultures then can likely d/c #Afib with RVR -BPs low normal 80-100/60s, on dilt @ 15, po metoprolol BID, titrate dilt to maintain MAP >65 - ECHO pending - lovenox, ASA -Dr. Coleman on board, recs appreciated #Hypoglycemia -likely from taking insulin in light of poor appetite -will certified personal finance counselor on when to take insulin or not -drop home insulin requirement to 10units glargine while here in hospital #Hypoclyemia in IDDMII - POC 142-170, no further hypoglycemic episodes - downtitrated daily insulin to 10 glargine (home 25 units) -discussed imporatnce of eating with insulin administration # Elevated Troponin, likely demand ischemia 2/2 Afib with RVR - EKG afib with RVR, trop initially elevated, asx, will trend trops - On therapeutic lovenox for afib with RVR, cont to monitor #Elevated D-dimer - initially elevated, CTA chest r/o PE # Metastatic Pancreatic Cancer - Dr. Morales consulted - Palliative care consulted for assistance with goals of care and advanced directives, apprec recs # HTN - home home lisinopril at this time VTE: Therapeutic lovenox Diet: NPO, will start diet today Code: Full - discussed at length with pt and daughter and son at bedside, wishes to be full code but not "kept alive as a vegetable," recommended relaying these wishes to family and having wishes in writing, consulted Palliative care to help with discussion will discuss with Dr. Flores Addendum - Attending - Attending Attestation Date/Time: 01/02/192048 I personally evaluated the patient and discussed the management with Dr. Noguera at 0940 I agree with the History, Examination, Assessment and Plan documented above with any addition or exceptions noted below. Metastatic pancreatic cancer afib with RVR thrombocytopenia Anemia Patient on therapeutic lovenox but with will discuss with cardiology as now with thrombocytopenia. On max dose IV cardizem but rate still not controlled. Began discussion with patient about ongoing goals of care. Palliative care and oncology consulted for assistance.
[2019-01-02] MEDS ORDERED: Dronabinol 2.5 MG CAP PO ONE (07:44)
[2019-01-02] MEDS: Metoprolol Tartrate 25 MG TAB PO SCH ×2 (08:41→21:26)
[2019-01-02] MEDS: Famotidine/PF 20 mg/2ml Vial SLOW IVP SCH ×2 (08:41→21:26)
[2019-01-02] MEDS: Allopurinol 300 MG TAB PO SCH (08:42)
[2019-01-02] MEDS ORDERED: Sodium Chloride 0.9% 500 ML IV SCH (09:30)
[2019-01-02] MEDS: Insulin Glargine 10 UNITS in Pre-Filled Syringe 1 EACH SC SCH (10:45)
[2019-01-02] MEDS ORDERED: Dexamethasone 4 mg/ml Vial SLOW IVP SCH (11:00)
--- NOTE | 2019-01-02 12:06 | PRG ---
DATE OF SERVICE: 01/02/2019 SERVICE: Pulmonary Medicine INTERVAL HISTORY: The patient has constant complaints of discomfort. He does not like to be rotated to the right or to the left because of his bone pain. He denies any current fevers, chills, nausea, or vomiting. There are no significant overnight events. Otherwise, his white blood cell count has improved significantly. He does not have any complaints of difficulty with breathing. PHYSICAL EXAMINATION: VITAL SIGNS: Afebrile, pulse 110, blood pressure 106/75, respirations 25, and saturation 98%, currently on room air. GENERAL: The patient is awake and alert. He is in moderate distress secondary to multiple pains. HEENT: Normocephalic and atraumatic. Sclerae are white. Conjunctivae are pink. Oral mucosa is moist without lesions. There is significant temporal wasting present. LUNGS: Decent air entry. Rhonchi are present but clear with cough. No prolonged expiratory phase. HEART: Normal rate, regular. ABDOMEN: Soft, nontender, and nondistended. Bowel sounds are positive. MUSCULOSKELETAL: No cyanosis or clubbing. No pitting in the bilateral lower extremities. NEUROLOGIC: Grossly nonfocal. LABORATORY DATA: WBC is settling down to 33.1, hemoglobin 7.9 and gently downtrending, platelets 78,000. Basic metabolic profile is essentially unremarkable. Calcium 7.2. Liver function studies are otherwise unremarkable. Alkaline phosphatase is elevated, associated with likely liver and/or bone lesions. Urinalysis is negative. All culture results are negative to date. IMAGING: Echocardiogram shows normal ejection fraction with mild valvular abnormalities. ASSESSMENT: 1. Syncope. 2. Hypoglycemia, resolved. 3. Atrial fibrillation with RVR, currently under better rate control. 4. Pancreatic cancer, widely metastatic. 5. Pleural effusion. 6. Leukemoid reaction, suspected. 7. Severe protein-calorie malnutrition. 8. Chronic pain. DISCUSSION AND PLAN: The patient is on frequent narcotic medications. I will introduce a small dose of steroids to see whether or not this helps with his bone discomfort. He has developed a new thrombocytopenia. We can consider holding anticoagulation at this time. I do not see any source of blood loss, however. Assuming his hemoglobins remain stable, he would be stable for transition out of the ICU to the telemetry unit. He remains a full code, but Palliative Services are discussing this further with him. Ultimately, I do not believe the patient is a good candidate in his current state for ongoing chemotherapy. That is for Oncology, however, to decide with the patient. If he ends up intubated, he will be unlikely to make a meaningful recovery. Job ID: [id number]
--- NOTE | 2019-01-02 14:14 | PDOC.CPN ---
- Subjective Date: 01/02/19 Time: 14:23 Interval history: Pt in better spirits today. Not eating or taking PO Taking meds though HR remains elevated - Objective Allergies/Adverse Reactions: Allergies Allergy/AdvReac Type Severity Reaction Status Date / Time Sulfa (Sulfonamide Allergy Unknown Verified 12/28/18 01:44 Antibiotics) Visit Medications: Current Medications Allopurinol (Zyloprim) 300 mg PO DAILY [facility] Last Admin: 01/02/19 08:42 Dose: 300 mg Dexamethasone (Decadron) 4 mg SLOW IVP DAILY [facility] Dextrose/Water (Dextrose 50%) 25 gm SLOW IVP PRN PRN PRN Reason: Hypoglycemia Diltiazem HCl (Cardizem) 30 mg PO Q6H [facility] Last Admin: 01/02/19 11:17 Dose: 30 mg Dronabinol (Marinol) 2.5 mg PO BID-AC [facility] Enoxaparin Sodium (Lovenox) 80 mg SC 1200,2359 [facility] Last Admin: 01/02/19 11:17 Dose: 80 mg Famotidine (Pepcid) 20 mg SLOW IVP Q12HR [facility] Last Admin: 01/02/19 08:41 Dose: 20 mg Glucagon (Glucagon) 1 mg IM PRN PRN PRN Reason: Hypoglycemia Norepinephrine Bitartrate 8 mg (/ Dextrose/Water) 250 mls @ 0 mls/hr IVPB INF PRN; Protocol PRN Reason: TO MAINTAIN MAP > 65 Diltiazem HCl 125 mg/Miscellaneous Medication 1 each/ Sodium Chloride 125 mls @ 5 mls/hr IVPB INF [facility]; Protocol Last Admin: 01/02/19 06:14 Dose: 125 mls Dextrose/Water (D5w) 1,000 mls @ 0 mls/hr IV .Q0M PRN PRN Reason: Hypoglycemia Norepinephrine Bitartrate (Levophed) 250 mls @ 0 mls/hr IVPB PRN PRN; Protocol PRN Reason: To maintain MAP > 65 Piperacillin Sod/Tazobactam (Sod 3.375 gm/ Sodium Chloride) 100 mls @ 200 mls/ hr IVPB 0300,0900,1500,2100 [facility] Last Admin: 01/02/19 08:41 Dose: 100 mls Potassium Chloride 40 meq/ (Sodium Chloride) 270 mls @ 135 mls/hr IVPB ASDIR PRN PRN Reason: FOR SERUM K+ 2.5 - 3.5 Potassium Chloride 40 meq/ (Device) 100 mls @ 50 mls/hr IVPB ASDIR PRN PRN Reason: FOR SERUM K+ 2.5 - 3.5 Magnesium Sulfate 1 gm/ Sodium (Chloride) 102 mls @ 102 mls/hr IV PRN PRN PRN Reason: MAG LEVEL 1.4 - 2.0 Magnesium Sulfate 2 gm/ Device 50 mls @ 50 mls/hr IVPB ASDIR PRN PRN Reason: MAGNESIUM < 1.4 Potassium Phosphate 9 mmol/ (Sodium Chloride) 103 mls @ 25.75 mls/hr IVPB ASDIR PRN PRN Reason: Phosphate 1.0-1.8 Potassium Phosphate 12 mmol/ (Sodium Chloride) 254 mls @ 63.5 mls/hr IV ASDIR PRN PRN Reason: Serum phosphate 0.5-0.9 Potassium Phosphate 15 mmol/ (Sodium Chloride) 255 mls @ 63.75 mls/hr IV ASDIR PRN PRN Reason: Serum Phos < 0.5 Insulin Glargine 10 units/ (Miscellaneous Medication) 0.1 mls @ 0 mls/[facility] [place] [facility] Last Admin: 01/02/19 10:45 Dose: Not Given Vancomycin HCl 1.25 gm/ Sodium (Chloride) 250 mls @ 166.667 mls/hr IVPB 0200, 1400 [facility] Insulin Human Lispro (Humalog) 0 units SC .MILD SLIDING SCALE PRN PRN Reason: Mild Correctional Scale Last Admin: 01/02/19 04:48 Dose: 2 unit Magnesium Oxide (Magnesium Oxide) 400 mg PO BIDPRN PRN PRN Reason: FOR SERUM MAG 1.4 - 2.0 Magnesium Oxide (Magnesium Oxide) 800 mg PO PRN PRN PRN Reason: FOR SERUM MAG < 1.4 Metoprolol Tartrate (Lopressor) 25 mg PO BID [facility] Last Admin: 01/02/19 08:41 Dose: 25 mg Miscellaneous Medication (Phos-Nak) 1 pkt PO TIDPRN PRN PRN Reason: FOR PHOS LEVEL 1.0 - 1.8 Miscellaneous Medication (Phos-Nak) 2 pkt PO TIDPRN PRN PRN Reason: FOR PHOS LEVEL 0.5 - 1.0 Miscellaneous Medication (Pharmacy To Dose) 1 each IVPB PRN PRN PRN Reason: Pharmacy to dose VANC/ZOSYN Morphine Sulfate (Morphine) 4 mg SLOW IVP Q4H PRN PRN Reason: Mild-Moderate Pain (1-5) Last Admin: 01/01/19 15:11 Dose: 4 mg Ccu Electrolyte (Replacement Protocol) 0 each FS PRN PRN PRN Reason: FOR ELECTROLYTE REPLACEMENT Ondansetron HCl (Zofran) 4 mg IVP Q6H PRN PRN Reason: Nausea/Vomiting Last Admin: 01/01/19 12:41 Dose: 4 mg Potassium Chloride (K-Dur) 40 meq PO ASDIR PRN PRN Reason: FOR SERUM K+ 2.5 - 3.5 Potassium Chloride (Klor-Con) 40 meq PER TUBE ASDIR PRN PRN Reason: FOR SERUM K+ 2.5-3.5 Senna/Docusate Sodium (Senokot S) 2 tab PO BIDPRN PRN PRN Reason: Constipation Sodium Chloride (Flush - Normal Saline) 10 ml IVF PRN PRN PRN Reason: Saline Flush Vital Signs & Weight: Vital Signs Temp Pulse Pulse BP BP Pulse Ox Pulse Ox 01/02/19 11:00 98.1 F 01/02/19 10:45 135 H 142 H 91/69 106/75 99 01/02/19 07:42 97 01/02/19 07:00 98.0 F 01/02/19 04:00 98.0 F Pulse Ox 01/02/19 11:00 01/02/19 10:45 99 01/02/19 07:42 01/02/19 07:00 01/02/19 04:00 Weight 165 lb 2.02 oz - Physical Exam General: alert & oriented x3 Neck: supple neck Cardiac: irregularly regular, tachycardia Lungs: clear to auscultation Musculoskeletal: normal range of motion - Labs Result Diagrams: 01/02/19 04:46 01/02/19 04:46 Troponin/CKMB CK-MB (CK-2) 5.1 ng/mL (0-6.6) 12/31/18 19:48 Troponin I 0.392 ng/mL (< 0.028) H* 01/01/19 01:00 - Assessment/Plan Assessment/Plan: Afib with RVR Meastatic pancreatic cancer leukocytosis Thrombocytopenia Difficult situation Pt on max CCB Add PO CCB and BB Consider JUAN CV but will depend on how aggressive family would like to be If CV, will need to letty on ACT for 4 weeks and may be difficult with marginal platelet count Pt meeting with palliative care today
[2019-01-02] MEDS: Vancomycin HCl 1.25 GM in Sodium Chloride 0.9% 250 ML 250 ML IVPB SCH (14:18)
[2019-01-02] MEDS: Dronabinol 2.5 MG CAP PO SCH (16:35)
--- NOTE | 2019-01-02 19:16 | CON ---
DATE OF CONSULTATION: REASON FOR CONSULTATION: Pancreatic cancer. HISTORY OF PRESENT ILLNESS: Mr. Samaniego is a pleasant 68-year-old gentleman, who has metastatic pancreatic adenocarcinoma with bone and liver mets. He has been undergoing treatment with FOLFIRINOX and has been doing well until a few weeks ago when he began to have increased abdominal girth and lower extremity edema. He did have a paracentesis on December 27 with removal of 5 L of fluid. His last chemotherapy was on December 27, and his CA-19-9 had increased slightly from 11,000 to 14,000. Over the weekend, he was feeling weak and did have a fall. He also took his insulin, but has not been eating for the last several days. He was brought by EMS to the emergency room. He was noted to be in atrial fibrillation with RVR. He was admitted to the ICU, where he remains at this time. He is on a Cardizem drip. He has multiple complaints of pain with movement, primarily his bones and tailbone. He does have blisters on his feet from worsening edema. PAST MEDICAL HISTORY: 1. Stage IV pancreatic adenocarcinoma. 2. Diabetes mellitus, type 2. 3. Hypertension. 4. Hyperlipidemia. 5. Colon polyp. PAST SURGICAL HISTORY: 1. Polypectomy. 2. Upper GI endoscopy. 3. Biopsy. 4. MediPort placement. ALLERGIES: SULFA. HOME MEDICATIONS: 1. Lomotil p.r.n. 2. Levemir daily. 3. Allopurinol daily. 4. Marinol b.i.d. 5. Zestril daily. 6. K-Dur b.i.d. FAMILY HISTORY: Noncontributory. SOCIAL HISTORY: He is , has 2 children. Lives with his son. No alcohol, tobacco, or illicit drug use. REVIEW OF SYSTEMS: A 10-point review of systems is negative except for noted in HPI. PHYSICAL EXAMINATION: VITAL SIGNS: Temperature is 98.2, pulse is 142, respiratory rate 23, blood pressure is 102/73, and he is 100% on 2 L. GENERAL: This is a chronically ill-appearing male, in no acute distress. HEENT: Normocephalic and atraumatic. Pupils are equal and reactive to light. NECK: Supple. CV: Irregular rate and rhythm. LUNGS: Clear anterior. ABDOMEN: Soft, mildly distended. Bowel sounds are positive. EXTREMITIES: He has bilateral lower extremities 2+ edema. SKIN: He has blisters on his feet. No rash. HEMATOLOGIC: He has scattered bruising on his arms. NEUROLOGIC: He is nonfocal. PSYCHIATRIC: He is alert, oriented, and appropriate. PERTINENT LABORATORY DATA AND X-RAYS: Current WBCs are 33.1, hemoglobin 7.9, hematocrit 24.8, platelet count is 78,000. Sodium is 135, potassium 4, chloride is 104, CO2 is 21, BUN is 13, creatinine 0.65, calcium is 7.2. Bilirubin is 0.5, AST is 26, ALT is 10, alkaline phosphatase is 259. Serum total protein is 4.9, albumin 2.2, and globulin 2.3. ASSESSMENT: 1. Stage IV pancreatic adenocarcinoma. 2. Atrial fibrillation with rapid ventricular response. 3. Hypoglycemia episode secondary to malnutrition. DISCUSSION: The patient likely has a clinical progression, although his scans have remained relatively stable. His CEA and CA-19-9 have slightly increased with this past chemo. His leukocytosis on admission could be from Neulasta. He does trend downward with his chemo, so I suspect that his anemia and thrombocytopenia are related to that. He should recover within the next day or two. We discussed code status and he has agreed to a DNAR. We discussed that he is unlikely to tolerate any further treatment and recommend either a swing better or hospice. I think he is appropriate for hospice and could even be appropriate for inpatient hospice. He wishes to discuss this further with his family. We will have palliative care to see him and follow up on this tomorrow. I will continue his IV pain medication. Thank you for the consult. We will follow him closely. Job ID: [id number]
[2019-01-03] MEDS: Diltiazem HCl 125 MG, Admixture Fee 1 EACH in Sodium Chloride 0.9% 100 ML IVPB SCH (02:05)
[2019-01-03] MEDS: Vancomycin HCl 1.25 GM in Sodium Chloride 0.9% 250 ML 250 ML IVPB SCH (02:05)
[2019-01-03] MEDS: Piperacillin/Tazobactam 3.375 GM in Sodium Chloride 0.9% 100 ML IVPB SCH (03:18)
[2019-01-03] MEDS: HumaLOG 300 UNITS/3 ML VIAL SC PRN ×4 (04:01→16:58)
[2019-01-03 05:57] LABS: ALT (SGPT) 8 U/L (8-55); AST (SGOT) 18 U/L (5-34); Albumin 2.4 g/dL (3.4-4.8); Alkaline Phosphatase 276 U/L (40-150); Anion Gap 12 mmol/L (10-20); BUN (Urea Nitrogen) 17 mg/dL (8.4-25.7); Bilirubin, Total 0.5 mg/dL (0.2-1.2); Calc. Creatinine Clearance 101 mL/min (70-130); Calcium 7.6 mg/dL (7.8-10.44); Carbon Dioxide 22 mmol/L (23-31); Chloride 105 mmol/L (98-107); Estimated GFR-MDRD Greater than 90; Globulin 2.3 g/dL (2.4-3.5); Glucose 163 mg/dL (80-115); Potassium 3.9 mmol/L (3.5-5.1); Protein, Total 4.7 g/dL (5.8-8.1); Sodium 135 mmol/L (136-145)
--- NOTE | 2019-01-03 06:12 | PDOC.CPN ---
- Subjective Date: 01/03/19 Time: 16:50 - Objective Allergies/Adverse Reactions: Allergies Allergy/AdvReac Type Severity Reaction Status Date / Time Sulfa (Sulfonamide Allergy Unknown Verified 12/28/18 01:44 Antibiotics) Visit Medications: Current Medications Allopurinol (Zyloprim) 300 mg PO DAILY [facility] Last Admin: 01/02/19 08:42 Dose: 300 mg Dexamethasone (Decadron) 4 mg SLOW IVP DAILY [facility] Dextrose/Water (Dextrose 50%) 25 gm SLOW IVP PRN PRN PRN Reason: Hypoglycemia Diltiazem HCl (Cardizem) 30 mg PO Q6H [facility] Last Admin: 01/03/19 04:01 Dose: 30 mg Dronabinol (Marinol) 2.5 mg PO BID-AC [facility] Last Admin: 01/02/19 16:35 Dose: 2.5 mg Enoxaparin Sodium (Lovenox) 80 mg SC 1200,2359 [facility] Last Admin: 01/02/19 23:59 Dose: Not Given Famotidine (Pepcid) 20 mg SLOW IVP Q12HR [facility] Last Admin: 01/02/19 21:26 Dose: 20 mg Glucagon (Glucagon) 1 mg IM PRN PRN PRN Reason: Hypoglycemia Norepinephrine Bitartrate 8 mg (/ Dextrose/Water) 250 mls @ 0 mls/hr IVPB INF PRN; Protocol PRN Reason: TO MAINTAIN MAP > 65 Diltiazem HCl 125 mg/Miscellaneous Medication 1 each/ Sodium Chloride 125 mls @ 5 mls/hr IVPB INF [facility]; Protocol Last Admin: 01/03/19 02:05 Dose: 125 mls Dextrose/Water (D5w) 1,000 mls @ 0 mls/hr IV .Q0M PRN PRN Reason: Hypoglycemia Norepinephrine Bitartrate (Levophed) 250 mls @ 0 mls/hr IVPB PRN PRN; Protocol PRN Reason: To maintain MAP > 65 Piperacillin Sod/Tazobactam (Sod 3.375 gm/ Sodium Chloride) 100 mls @ 200 mls/ hr IVPB 0300,0900,1500,2100 [facility] Last Admin: 01/03/19 03:18 Dose: 100 mls Potassium Chloride 40 meq/ (Sodium Chloride) 270 mls @ 135 mls/hr IVPB ASDIR PRN PRN Reason: FOR SERUM K+ 2.5 - 3.5 Potassium Chloride 40 meq/ (Device) 100 mls @ 50 mls/hr IVPB ASDIR PRN PRN Reason: FOR SERUM K+ 2.5 - 3.5 Magnesium Sulfate 1 gm/ Sodium (Chloride) 102 mls @ 102 mls/hr IV PRN PRN PRN Reason: MAG LEVEL 1.4 - 2.0 Magnesium Sulfate 2 gm/ Device 50 mls @ 50 mls/hr IVPB ASDIR PRN PRN Reason: MAGNESIUM < 1.4 Potassium Phosphate 9 mmol/ (Sodium Chloride) 103 mls @ 25.75 mls/hr IVPB ASDIR PRN PRN Reason: Phosphate 1.0-1.8 Potassium Phosphate 12 mmol/ (Sodium Chloride) 254 mls @ 63.5 mls/hr IV ASDIR PRN PRN Reason: Serum phosphate 0.5-0.9 Potassium Phosphate 15 mmol/ (Sodium Chloride) 255 mls @ 63.75 mls/hr IV ASDIR PRN PRN Reason: Serum Phos < 0.5 Insulin Glargine 10 units/ (Miscellaneous Medication) 0.1 mls @ 0 mls/hr [facility] [place] Last Admin: 01/02/19 10:45 Dose: Not Given Vancomycin HCl 1.25 gm/ Sodium (Chloride) 250 mls @ 166.667 mls/hr IV 0200, 1400 [facility] Last Admin: 01/03/19 02:05 Dose: 250 mls Insulin Human Lispro (Humalog) 0 units SC .MILD SLIDING SCALE PRN PRN Reason: Mild Correctional Scale Last Admin: 01/03/19 04:01 Dose: 2 unit Magnesium Oxide (Magnesium Oxide) 400 mg PO BIDPRN PRN PRN Reason: FOR SERUM MAG 1.4 - 2.0 Magnesium Oxide (Magnesium Oxide) 800 mg PO PRN PRN PRN Reason: FOR SERUM MAG < 1.4 Metoprolol Tartrate (Lopressor) 12.5 mg PO BID [facility] Last Admin: 01/02/19 21:26 Dose: 12.5 mg Miscellaneous Medication (Phos-Nak) 1 pkt PO TIDPRN PRN PRN Reason: FOR PHOS LEVEL 1.0 - 1.8 Miscellaneous Medication (Phos-Nak) 2 pkt PO TIDPRN PRN PRN Reason: FOR PHOS LEVEL 0.5 - 1.0 Miscellaneous Medication (Pharmacy To Dose) 1 each IVPB PRN PRN PRN Reason: Pharmacy to dose VANC/ZOSYN Morphine Sulfate (Morphine) 4 mg SLOW IVP Q4H PRN PRN Reason: Mild-Moderate Pain (1-5) Last Admin: 01/01/19 15:11 Dose: 4 mg Ccu Electrolyte (Replacement Protocol) 0 each FS PRN PRN PRN Reason: FOR ELECTROLYTE REPLACEMENT Ondansetron HCl (Zofran) 4 mg IVP Q6H PRN PRN Reason: Nausea/Vomiting Last Admin: 01/01/19 12:41 Dose: 4 mg Potassium Chloride (K-Dur) 40 meq PO ASDIR PRN PRN Reason: FOR SERUM K+ 2.5 - 3.5 Potassium Chloride (Klor-Con) 40 meq PER TUBE ASDIR PRN PRN Reason: FOR SERUM K+ 2.5-3.5 Senna/Docusate Sodium (Senokot S) 2 tab PO BIDPRN PRN PRN Reason: Constipation Sodium Chloride (Flush - Normal Saline) 10 ml IVF PRN PRN PRN Reason: Saline Flush Vital Signs & Weight: Vital Signs Temp Pulse Ox 01/03/19 04:00 98.2 F 01/03/19 00:00 98.4 F 01/02/19 20:00 98.2 F 99 Admit Weight 165 lb Weight 165 lb 2.02 oz - Physical Exam General: cachectic Cardiac: irregularly regular, tachycardia Lungs: clear to auscultation Neuro: grossly intact Musculoskeletal: no pain - Labs Result Diagrams: 01/03/19 05:25 01/03/19 05:25 Troponin/CKMB CK-MB (CK-2) 5.1 ng/mL (0-6.6) 12/31/18 19:48 Troponin I 0.392 ng/mL (< 0.028) H* 01/01/19 01:00 - Assessment/Plan Assessment/Plan: Afib with RVR Meastatic pancreatic cancer leukocytosis Thrombocytopenia 01/03 REC Review of Oncology note Will recommend a conservative approach On CCB; DC IV Would like to add BB but concerns over low BP For CV, would need ACT for at least 4 weeks to reduce chance of CVA Pt opts for hopsice. 01/02 REC Difficult situation Pt on max CCB Add PO CCB and BB Consider JUAN CV but will depend on how aggressive family would like to be If CV, will need to letty on ACT for 4 weeks and may be difficult with marginal platelet count Pt meeting with palliative care today
[2019-01-03 06:15] LABS: Hemoglobin 7.4 g/dL (14.0-18.0); Mean Corpuscular HGB CONC 32.2 g/dL (32.0-36.0); Mean Corpuscular Volume 99.5 fL (78.0-98.0); Mean Platelet Volume 8.5 fL (7.4-10.4); Platelet Count 46 thou/uL (130-400); RBC Distribution Width 16.2 % (11.5-14.5); Red Blood Cell (RBC) Count 2.31 mill/uL (4.70-6.10); White Blood Cell (WBC) Count 25.7 thou/uL (4.8-10.8)
[2019-01-03 06:34] LABS: Band 6 % (5-11); MDiff Complete? YES; Neutrophil 94 % (42-75); Platelet Morphology Comment Appears Decreased
--- NOTE | 2019-01-03 06:43 | PDOC.FM ---
- Subjective Subjective: NAEO. no emesis, fevers, chills. Patient denies CP/palpitations. Still no appetite. - Objective MAR Reviewed: Yes Vital Signs & Weight: Vital Signs (12 hours) Temp Pulse Ox 01/03/19 04:00 98.2 F 01/03/19 00:00 98.4 F 01/02/19 20:00 98.2 F 99 Weight Admit Weight 74.843 kg Weight 77.2 kg Most Recent Monitor Data Heart Rate from ECG 125 NIBP 119/76 NIBP BP-Mean 90 Respiration from ECG 23 SpO2 100 I&O: 01/01/19 01/02/19 01/03/19 06:59 06:59 06:59 Intake Total 718 1221 2676 Output Total 785 1100 920 Balance -67 121 1756 Result Diagrams: 01/03/19 05:25 01/03/19 05:25 Phys Exam - Physical Examination cachectic HEENT: PERRLA, sclera anicteric Neck: no JVD, full ROM Respiratory: no wheezing, clear to auscultation bilateral Cardiovascular: no significant murmur, irregular Gastrointestinal: soft, non-tender 1+ edema to knees Neurological: non-focal, moves all 4 limbs Psychiatric: normal affect, A&O x 3 Dx/Plan (1) Ascites Code(s): R18.8 - OTHER ASCITES Status: Acute (2) Metastasis from pancreatic cancer Code(s): C79.9 - SECONDARY MALIGNANT NEOPLASM OF UNSPECIFIED SITE; C25.9 - MALIGNANT NEOPLASM OF PANCREAS, UNSPECIFIED Status: Chronic (3) Septic shock Code(s): A41.9 - SEPSIS, UNSPECIFIED ORGANISM; R65.21 - SEVERE SEPSIS WITH SEPTIC SHOCK Status: Acute (4) Atrial fibrillation with RVR Code(s): I48.91 - UNSPECIFIED ATRIAL FIBRILLATION Status: Acute (5) Elevated troponin Code(s): R74.8 - ABNORMAL LEVELS OF OTHER SERUM ENZYMES Status: Acute (6) Diabetes Code(s): E11.9 - TYPE 2 DIABETES MELLITUS WITHOUT COMPLICATIONS Status: Acute - Plan Plan: 68yo CM with h/o metastatic pancreatic cancer presents via EMS for AMS 2/2 hypoglycemia found to be in afib with RVR and septic shock. #s/p septic shock/leukemoid reaction - WBC downtrending, all cultures negative, will d/c abx - luekomeoid rxn likely from cancer vs. hypoglycemic episode vs. effects of chemotherapy #Afib with RVR -BPs low normal 80-100/60s, on dilt @ 15, po metoprolol BID, titrate dilt to maintain MAP >65 - ECHO pending - lovenox, ASA-need to have convo w/ cards about this d/t thrombocytopenia -Dr. Coleman on board, recs appreciated #Thrombocytopenia -Plts decreasing to 46, no active signs of bleeding -On ACT for afib w/ RVR -discuss w/ cards & with family #Hypoglycemia, resolved -POC 105-211 without insulin -patient could be better candidate for sliding scale/postprandial insulin d/t inconsistent appetite-will discuss #Elevated D-dimer - initially elevated, CTA chest r/o PE # Metastatic Pancreatic Cancer - heme/onc on board - Palliative care consulted for assistance with goals of care and advanced directives, apprec recs # HTN - home home lisinopril at this time VTE: Therapeutic lovenox Diet: RD Code: DNR. Need to have convo about outpt hospice or if would like inpt rehab or prefer to bypass this and be made comfortable. Need to discuss with cards/ onc about thrombocytopenia. Afib with RVR-still not rate controlled but patient asx. Cards recs appreciated. Abx d/cd. will discuss with Dr. Flores Addendum - Attending - Attending Attestation Date/Time: 01/03/192120 I personally evaluated the patient and discussed the management with Dr. Noguera I agree with the History, Examination, Assessment and Plan documented above with any addition or exceptions noted below. Patient has decided to go home with hospice. Will d/c IV diltiazem but continue oral rate controller meds. Appreciate hospice input. Stable for d/c once arrangements made
[2019-01-03] MEDS: Dronabinol 2.5 MG CAP PO SCH ×2 (08:47→16:56)
[2019-01-03] MEDS: Allopurinol 300 MG TAB PO SCH (09:07)
[2019-01-03] MEDS: Famotidine/PF 20 mg/2ml Vial SLOW IVP SCH ×2 (09:08→20:12)
[2019-01-03] MEDS: Metoprolol Tartrate 25 MG TAB PO SCH ×2 (09:08→20:12)
[2019-01-03] MEDS: Insulin Glargine 10 UNITS in Pre-Filled Syringe 1 EACH SC SCH (09:08)
[2019-01-03] MEDS: Dexamethasone 4 mg/ml Vial SLOW IVP SCH (09:08)
--- NOTE | 2019-01-03 09:31 | PRG ---
DATE OF SERVICE: 01/03/2019 SERVICE: Pulmonary Medicine. INTERVAL HISTORY: The patient continues to have significant discomforts. The white blood cell count, low hemoglobin and platelet count are now explained. It is likely secondary to the white blood cell stimulating drug, that he received with chemotherapy. The chemotherapy likely dropped his other cell lines. He cannot provide any additional elements of the history. Otherwise, there has been no interval change to his condition. PHYSICAL EXAMINATION: VITAL SIGNS: Afebrile, pulse 125, blood pressure 119/76, respirations 23, and saturation 100% on room air. GENERAL: The patient is awake and alert. He is in mild distress secondary to pain. HEENT: Normocephalic and atraumatic. Sclerae white. Conjunctivae pink. Oral mucosa is moist without lesions. LUNGS: Decent air entry. There is no prolonged expiratory phase. No wheezing or crackles are appreciated. HEART: Normal rate. Regular. ABDOMEN: Soft, nontender, and nondistended. Bowel sounds are positive. MUSCULOSKELETAL: No cyanosis or clubbing. There is no pitting in the bilateral lower extremities. NEUROLOGIC: Grossly nonfocal. LABORATORY DATA: WBC 25.7, hemoglobin 7.4, and platelets 46,000. Basic metabolic profile and liver function studies are otherwise unremarkable. Alkaline phosphatase remains elevated at 276 and is stable. Urinalysis is unremarkable. Cultures are negative to-date. ASSESSMENT: 1. Syncope. 2. Hypoglycemia, resolved. 3. Atrial fibrillation with rapid ventricular rate, currently under good rate control. 4. Pancreatic cancer, widely metastatic. 5. Pleural effusion. 6. Leukemoid reaction secondary to Neulasta. 7. Anemia and thrombocytopenia, secondary to chemotherapy. 8. Severe protein-calorie malnutrition. 9. Chronic pain. DISCUSSION AND PLAN: Once again, the patient is stable for transition out of the ICU to the telemetry unit. His platelets are low enough that we can interrupt anticoagulation. When he leaves the ICU, he will have no further requirements for inpatient Pulmonary/Critical Care opinion, and I will sign off. Overall, his prognosis is very poor. Please call with additional questions or concerns through time. Job ID: [id number] [facility]
[2019-01-03] MEDS ORDERED: HYDROcodone/Acetaminophen 10/325 mg Tablet PO PRN ×2 (11:21→11:22)
[2019-01-03] MEDS: Enoxaparin Sodium 80 MG/0.8 ML SYRINGE SC SCH (13:57)
--- NOTE | 2019-01-03 16:31 | PDOC.MOPN ---
Interval History: feels better today. - Vital Signs Vital Signs: Vital Signs (12 hours) Temp Pulse Ox 01/03/19 12:00 97.9 F 01/03/19 08:00 100 01/03/19 07:00 97.8 F Weight Admit Weight 165 lb Weight 170 lb 3.15 oz Most Recent Monitor Data Heart Rate from ECG 143 NIBP 128/74 NIBP BP-Mean 92 Respiration from ECG 19 SpO2 100 - Physical Exam General: Alert HEENT: Atraumatic Cardiovascular: Other Neurological: Normal speech Psych/Mental Status: Mental status NL - Labs Result Diagrams: 01/03/19 05:25 01/03/19 05:25 Lab results: Laboratory Results - last 24 hr 01/03/19 13:27: POC Glucose 198 H 01/03/19 08:51: POC Glucose 157 H 01/03/19 05:25: Sodium 135 L, Potassium 3.9, Chloride 105, Carbon Dioxide 22 L, Anion Gap 12, BUN 17, Creatinine 0.72, Estimated GFR (MDRD) Greater than 90, Glucose 163 H, Calcium 7.6 L, Total Bilirubin 0.5, AST 18, ALT 8, Alkaline Phosphatase 276 H, Serum Total Protein 4.7 L, Albumin 2.4 L, Globulin 2.3 L, Albumin/Globulin Ratio 1.0 L 01/03/19 05:25: WBC 25.7 H, RBC 2.31 L, Hgb 7.4 L, Hct 23.0 L, MCV 99.5 H, MCH 32.0 H, MCHC 32.2, RDW 16.2 H, Plt Count 46 L, MPV 8.5, Neutrophils % (Manual) 94 H, Band Neuts % (Manual) 6, Plt Morphology Comment Appears Decreased L 01/03/19 04:03: POC Glucose 173 H 01/02/19 23:57: POC Glucose 211 H 01/02/19 19:48: POC Glucose 185 H 01/02/19 17:17: POC Glucose 141 H Status: lab reviewed by me A/P - Problem (1) Atrial fibrillation with RVR Current Visit: Yes Code(s): I48.91 - UNSPECIFIED ATRIAL FIBRILLATION Status : Acute (2) Metastasis from pancreatic cancer Current Visit: Yes Code(s): C79.9 - SECONDARY MALIGNANT NEOPLASM OF UNSPECIFIED SITE; C25.9 - MALIGNANT NEOPLASM OF PANCREAS, UNSPECIFIED Status: Chronic - Plan Plan: Patient wishes to go home on hospice. [facility] here to see patient.
[2019-01-04] MEDS: HumaLOG 300 UNITS/3 ML VIAL SC PRN (05:49)
[2019-01-04 07:06] LABS: ALT (SGPT) Less than 7 U/L (8-55); AST (SGOT) 14 U/L (5-34); Albumin 2.6 g/dL (3.4-4.8); Alkaline Phosphatase 277 U/L (40-150); Anion Gap 10 mmol/L (10-20); BUN (Urea Nitrogen) 23 mg/dL (8.4-25.7); Bilirubin, Total 0.3 mg/dL (0.2-1.2); Calc. Creatinine Clearance 101 mL/min (70-130); Calcium 7.7 mg/dL (7.8-10.44); Carbon Dioxide 23 mmol/L (23-31); Chloride 105 mmol/L (98-107); Estimated GFR-MDRD Greater than 90; Globulin 2.3 g/dL (2.4-3.5); Glucose 198 mg/dL (80-115); Potassium 4.1 mmol/L (3.5-5.1); Protein, Total 4.9 g/dL (5.8-8.1); Sodium 134 mmol/L (136-145)
[2019-01-04 07:14] VITALS: BP 92/67; TEMP 97.5
[2019-01-04 08:22] LABS: Band 16 % (5-11); Hemoglobin 7.4 g/dL (14.0-18.0); Hypochromia SLIGHT = 6-15 cells (100X) (0-5/hpf); MDiff Complete? YES; Macrocytosis SLIGHT = 6-15 cells (100X) (0-5/hpf); Mean Corpuscular HGB CONC 32.2 g/dL (32.0-36.0); Mean Corpuscular Hemoglobin 32.4 pg (27.0-31.0); Mean Platelet Volume 10.7 fL (7.4-10.4); Neutrophil 84 % (42-75); Platelet Count 34 thou/uL (130-400); Platelet Morphology Comment Appears Decreased; Polychromasia SLIGHT = 2-3 cells (100X) (0-2/hpf); White Blood Cell (WBC) Count 14.8 thou/uL (4.8-10.8)
--- NOTE | 2019-01-04 09:01 | PDOC.FM ---
- Subjective Subjective: Pt reports good rest overnight, no current complaints. No CP/palpitations, no SOB. - Objective Vital Signs & Weight: Vital Signs (12 hours) Temp Pulse Resp BP BP Pulse Ox 01/04/19 07:13 97.5 F L 149 H 18 92/67 95 01/04/19 04:00 97.4 F L 127 H 18 109/75 97 01/04/19 00:00 97.9 F 133 H 18 102/67 98 Weight Admit Weight 74.843 kg Weight 77.746 kg Most Recent Monitor Data Heart Rate from ECG 143 NIBP 128/74 NIBP BP-Mean 92 Respiration from ECG 19 SpO2 100 I&O: 01/03/19 01/04/19 01/05/19 06:59 06:59 06:59 Intake Total 2676 1385 Output Total 920 120 Balance 1756 1265 Result Diagrams: 01/04/19 06:23 01/04/19 06:23 Phys Exam - Physical Examination Constitutional: NAD HEENT: moist MMs, sclera anicteric Neck: supple Respiratory: no wheezing, clear to auscultation bilateral Cardiovascular: no significant murmur, irregular Gastrointestinal: soft, non-tender Musculoskeletal: pulses present Neurological: normal sensation, moves all 4 limbs Psychiatric: normal affect Skin: no rash, normal turgor Dx/Plan (1) Atrial fibrillation with RVR Code(s): I48.91 - UNSPECIFIED ATRIAL FIBRILLATION Status: Acute (2) Diabetes Code(s): E11.9 - TYPE 2 DIABETES MELLITUS WITHOUT COMPLICATIONS Status: Acute (3) Metastasis from pancreatic cancer Code(s): C79.9 - SECONDARY MALIGNANT NEOPLASM OF UNSPECIFIED SITE; C25.9 - MALIGNANT NEOPLASM OF PANCREAS, UNSPECIFIED Status: Chronic (4) Sepsis Code(s): A41.9 - SEPSIS, UNSPECIFIED ORGANISM Status: Acute - Plan Plan: 68yo CM with h/o metastatic pancreatic cancer presents via EMS for AMS 2/2 hypoglycemia found to be in afib with RVR and septic shock. leukemoid reaction - WBC downtrending, all cultures negative, d/c'd abx Afib with RVR A- pt on PO amiodarone and metoprolol. Hospice is getting established. HR elevated however pt is asymptomatic P- continue PO meds, will increase therapy as needed for palliative benefit Thrombocytopenia -Plts decreasing to 46, no active signs of bleeding -DCd lovenox Elevated D-dimer - initially elevated, CTA chest r/o PE Metastatic Pancreatic Cancer -hospice/palliative consulted/in process HTN - home home lisinopril at this time Hypoglycemia, resolved CODE: DNAR dispo: plans for DC to home hospice Addendum - Attending - Attending Attestation Date/Time: 01/04/19 1350 I personally evaluated the patient and discussed the management with Dr. Rodriguez I agree with the History, Examination, Assessment and Plan documented above with any addition or exceptions noted below. Metastatic pancreatic cancer Afib with RVR Thrombocytopenia Protein calorie malnutrition Stable for d/c home on hospice. Discussed plan with daughter and answered all questions.
[2019-01-04 10:22] VITALS: BMI 26.8
[2019-01-04] MEDS: Famotidine/PF 20 mg/2ml Vial SLOW IVP SCH (11:23)
[2019-01-04] MEDS: Metoprolol Tartrate 25 MG TAB PO SCH (11:23)
[2019-01-04] MEDS: Dronabinol 2.5 MG CAP PO SCH (11:23)
[2019-01-04] MEDS: Allopurinol 300 MG TAB PO SCH (11:23)
[2019-01-04] MEDS: Dexamethasone 4 mg/ml Vial SLOW IVP SCH (11:23)
[2019-01-04] MEDS: Insulin Glargine 10 UNITS in Pre-Filled Syringe 1 EACH SC SCH (11:26)
--- NOTE | 2019-01-05 01:53 | DIS ---
DATE OF ADMISSION: 12/31/2018 DATE OF DISCHARGE: 01/04/2019 ADMITTING ATTENDING: Sp Parra MD RESIDENT: Destiney Noguera MD, PGY-2. CONSULTS: 1. Cardiology, Dr. Coleman. 2. Hematology Oncology, Dr. Simmons/Yi Wilson. 3. Pulmonology, Dr. James. 4. Palliative care. PRIMARY DIAGNOSES: 1. Atrial fibrillation with RVR. 2. Metastatic pancreatic cancer. 3. Leukemoid reaction. 4. Metabolic encephalopathy secondary to hypoglycemia and insulin-dependent diabetes mellitus 2. 5. Chronic hypertension 6. Insulin induced hypoglycemia in setting of poor appetite SECONDARY DIAGNOSES: 1. Cachexia secondary to metastatic pancreatic cancer. 2. Insulin-dependent diabetes mellitus 2. DISCHARGE MEDICATIONS: 1. Imodium. 2. Cardizem 30 mg p.o. q.6 hours. 3. Oxbow 10/325 two tabs p.o. q.4 hours p.r.n. for pain. 4. Oxbow 10/325 one tab p.o. q.4 hours p.r.n. for pain. 5. Lopressor 12.5 mg p.o. b.i.d. 6. Zofran 4 mg p.o. q.6 hours p.r.n. for nausea or vomiting. DISCONTINUED MEDICATIONS: 1. Lomotil. 2. Allopurinol. 3. Marinol. 4. Lisinopril. 5. K-Dur. 6. Levemir. HISTORY OF PRESENT ILLNESS/HOSPITAL COURSE: Mr. Ritesh Samaniego is a pleasant 68-year-old man, who unfortunately has metastatic pancreatic cancer, who presented to the ER after an episode of altered mental status. He was found to be profoundly hypoglycemic in the 30s. In the ER, he received IV dextrose and sugars were stable throughout the hospital course. The patient has had severe cachexia secondary to his metastatic pancreatic cancer and so had poor appetite for the past few days while continuing to take his insulin. This likely explained his hypoglycemic event. The patient's hospital course was complicated by new development of atrial fibrillation with RVR and he was started on anticoagulation and IV diltiazem. Patient's case complicated by worsening thrombocytopenia from chemotherapy. Unfortunately the patient never converted to NSR on both PO and IV CCBs, however he was transition to oral therapy along for comfort measures since he was not a candidate for cardioversion. Ultimately the patient was transitioned to pallitative and comfort care after discussion with Heme/Onc due to poor prognosis of his pancreatic cancer. Transitioned to DNR and outpatient hospice. He was made comfortable and was transitioned to [facility]. DISPOSITION: Stable. DISCHARGE INSTRUCTIONS: 1. Location: Home with [facility]. 2. Diet: Regular diet. 3. Activity: Ad kendra as tolerated, but recommend working with PT due to physical deconditioning. 4. Followup: Please follow up with Yi Wilson. Please follow up with PCP. Job ID: [id number] [facility]
== END 2019-01-04 12:45 | disposition hospice, home (50) | DRG 871 ==
LOC: ERS 18:46 → CCU 23:06 → T4-A 01-03 15:31
PROVIDERS: ADMIT Family Medicine; ATTEND Family Medicine
DX: A41.9 Sepsis, unspecified organism (principal); R65.21 Severe sepsis with septic shock; E43 Unspecified severe protein-calorie malnutrition; G93.41 Metabolic encephalopathy; C25.9 Malignant neoplasm of pancreas, unspecified; I24.8 Other forms of acute ischemic heart disease; R18.8 Other ascites; J90 Pleural effusion, not elsewhere classified; Z66 Do not resuscitate; I48.91 Unspecified atrial fibrillation; E78.5 Hyperlipidemia, unspecified; E11.649 Type 2 diabetes mellitus with hypoglycemia without coma; R74.8 Abnormal levels of other serum enzymes; G89.29 Other chronic pain; D69.59 Other secondary thrombocytopenia; T45.1X5A Adverse effect of antineoplastic and immunosuppressive drugs, initial encounter; D64.81 Anemia due to antineoplastic chemotherapy; Z88.2 Allergy status to sulfonamides; Z79.4 Long term (current) use of insulin; Z68.26 Body mass index [BMI] 26.0-26.9, adult; D72.823 Leukemoid reaction
CPT/HCPCS: 36415; 36416; 71045; 71275; 72170; 74177; 80053; 81003; 81015; 82553; 82945; 83605; 83735; 84100; 84145; 84157; 84443; 84484; 85007; 85025; 85027; 85060; 85379; 85610; 85730; 87040; 87070; 87086; 87205; 89051; 93005; 93306; J1100; J1160; J1642; J1650; J1815; J2270; J2405; J2543; J3370; J3475; J3480; J3490; J7050; J7070; Q0167; Q9966; S0028